=== PATIENT | female | born 1990 | race Caucasian/White ===

== ENCOUNTER 2022-01-05 16:43 | Outpatient (CLI) | payer OTHER, SELFPAY | END 2022-01-05 16:44 | disposition home or self-care (01) | LOC: ANHLAB 01-12 11:14 | PROVIDERS: PCP Internal Medicine; Visit Provider Nurse Practitioner | DX: O26.859 Spotting complicating pregnancy, unspecified trimester (principal); Z3A.00 Weeks of gestation of pregnancy not specified | CPT/HCPCS: 36415; 84702; 85461 ==

== ENCOUNTER 2022-01-12 11:15 | Outpatient (CLI) | payer OTHER, SELFPAY | END 2022-01-12 11:16 | disposition home or self-care (01) | PROVIDERS: PCP Internal Medicine; Visit Provider Nurse Practitioner | DX: O26.851 Spotting complicating pregnancy, first trimester (principal); Z3A.00 Weeks of gestation of pregnancy not specified | CPT/HCPCS: 36415; 84702 ==

== ENCOUNTER 2022-01-21 10:21 | Outpatient (CLI) | payer OTHER, SELFPAY ==
--- NOTE | ~2022-01-21 | US_ITS ---
EXAMINATION: US OB <= 14 weeks fetus DATE: 01/21/2022 12:08 INDICATION: Spotting during first trimester TECHNIQUE: Real-time pelvic ultrasound utilizing both a transvaginal and transabdominal probe was pe rformed. The interpreting radiologist was not present for the study. COMPARISON: None. FINDINGS: The uterus measures 8.5 x 6.2 x 5.9 cm. There is an intrauterine gestational sac. A yolk sac and fet al pole are identified. The crown rump length measures 10 mm, which correlates with an estimated gest ational age of 7 weeks and 1 days. heart motion is identified measuring 145 beats per minute (b pm) by M-mode Doppler. 1.9 x 0.8 x 0.4 similar hypoechoic likely subchorionic hematoma along side the gestational sac. The right ovary measures 3.2 x 2.1 x 2.2 cm. The left ovary measures 3.4 x 2.6 x 2.2 cm. There are fe w centimeters there is peripheral anechoic follicles at both ovaries. Vascular flow with arterial and venous waveforms identified in both ovaries on color Doppler. There is no free fluid in the pelvis. IMPRESSION: 1. Single living fetus with heart rate of 145 bpm. 2. Gestational age by ultrasound of 7 weeks 1 day(s) +/- 3 day(s) with ultrasound estimated date of delivery (JONNA) of 09/08/2022. Reviewed, dictated and finalized at location A. IMPRESSION: 1. Single living fetus with heart rate of 145 bpm. 2. Gestational age by ultrasound of 7 weeks 1 day(s) +/- 3 day(s) with ultraso und estimated date of delivery (JONNA) of 09/08/2022.
== END 2022-01-21 10:22 | disposition home or self-care (01) ==
PROVIDERS: PCP Internal Medicine; Visit Provider Nurse Practitioner
DX: O26.851 Spotting complicating pregnancy, first trimester (principal); Z3A.01 Less than 8 weeks gestation of pregnancy
CPT/HCPCS: 76801

== ENCOUNTER 2022-02-02 15:49 | Outpatient (CLI) | payer OTHER, SELFPAY ==
[2022-02-02 16:41] LABS: Basophils Percent Auto 0.3 % (0.2-1.2); Eosinophils Absolute Auto 0.1 K/mm3 (0-0.3); Eosinophils Percent Auto 0.7 % (0-4.4); Hematocrit 40.1 % (37.0-47.0); Hemoglobin 13.1 g/dL (12.0-15.0); Immature Granulocyte Absolute 0.04 K/mm3 (0.00-0.031); Immature Granulocyte Percent A 0.3 % (0-0.5); Lymphocytes Absolute Auto 1.93 K/mm3 (0.9-3.2); Lymphocytes Percent Auto 16.4 % (18.3-44.2); Mean Corpuscular HGB Conc 32.7 g/dl (32-36); Mean Corpuscular Hemoglobin 29.2 pg (26-34); Mean Corpuscular Volume 89.5 fl (80-100); Mean Platelet Volume 9.3 fl (7.4-10.4); Monocytes Absolute Auto 0.4 K/mm3 (0.1-0.6); Monocytes Percent Auto 3.2 % (2.6-8.5); Neutrophils Absolute Auto 9.3 K/mm3 (1.3-6.7); Neutrophils Percent Auto 79.1 % (45.5-73.1); Platelet Count Result 283 k/mm3 (150-375); Red Blood Count 4.48 M/mm3 (4.2-5.4); Red Cell Distribution Width 11.9 % (11.5-14.5); White Blood Count 11.8 K/mm3 (4.5-10.0)
[2022-02-02 17:30] LABS: HIV 1/2 Ab P24 Ag Result Negative (Negative)
[2022-02-02 18:01] LABS: Vitamin D 25 Hydroxy 46.3 ng/mL
[2022-02-02 18:30] LABS: Hepatitis B Surface Antigen Negative (Negative); Rubella IgG Antibody 62.1 IU/ML
[2022-02-02 18:32] LABS: Hepatitis C Virus Antibody Negative (Negative)
[2022-02-04 14:54] LABS: Rapid Plasma Reagin Non-Reactive (NonReactive)
== END 2022-02-02 15:50 | disposition home or self-care (01) ==
LOC: ANHLAB 15:51
PROVIDERS: PCP Internal Medicine; Visit Provider Nurse Practitioner
DX: Z36.9 Encounter for antenatal screening, unspecified (principal)
CPT/HCPCS: 36415; 82306; 83036; 85025; 86592; 86703; 86762; 86803; 86850; 86900; 86901; 87340; G0432

== ENCOUNTER → 2022-04-14 13:34 | Outpatient (CLI) | payer OTHER, SELFPAY ==
--- NOTE | ~2022-04-14 | US_ITS ---
EXAMINATION: US OB /maternal detail DATE: 04/14/2022 14:38 INDICATION: survey TECHNIQUE: Multiple obstetric sonographic images performed. FINDINGS: There is a single living fetus in transverse presentation. The placenta is anterior without placenta previa. Placental margin is 5 cm to the cervix. Amniotic fluid volume is normal. ROSE measures cm. cardiac activity and movement is noted with a heart rate of beats per minute. The following anatomy was identified as normal: 4 chamber heart 3 vessel cord cord insertion kidneys urinary bladder stomach spine diaphragm ventricles cisterna magna cerebellum The following biometric data were obtained: BPD: 43mm corresponds to gestational age 19 weeks 0 days. Head circumference: 165 mm corresponds to gestational age 19 weeks 1 days. Abdominal circumference: 151 mm corresponds to gestational age 20 weeks 2 days. Femur length: 30 mm corresponds to gestational age 19 weeks 2 days. Head circumference to abdominal circumference ratio: 1.09 (normal range for expected gestational age is 1.08-1.26). Estimated weight: 311 grams +/- 47 grams using Hadlock method. IMPRESSION: 1: Single living intrauterine with an estimated gestational age of 19weeks 0days by initial ultrasound measurements, with an EDC of 09/08/2022 in transverse presentation. 2. Normal survey. Reviewed, dictated and finalized at location A. IMPRESSION: 1: Single living intrauterine with an estimated gestational age of 19 weeks 0days by initial ultrasound measurements, with an EDC of 09/08/2022 in tr ansverse presentation. 2. Normal survey.
== END ==
PROVIDERS: PCP Internal Medicine; Visit Provider Advanced Practice Midwife
DX: Z34.92 Encounter for supervision of normal pregnancy, unspecified, second trimester (principal); Z3A.19 19 weeks gestation of pregnancy
CPT/HCPCS: 76805

== ENCOUNTER 2022-08-17 06:58 | Inpatient (IN) | payer OTHER, SELFPAY ==
[2022-08-17] VITALS (92 sets, daily range): BP systolic 63–165; BP diastolic 36–119; PULSE 25–162; TEMP 36.6–37.1; O2SAT 79–100; BMI 29.9
--- NOTE | 2022-08-17 06:58 | LDADM ---
This patient, Jeannine Myles, was admitted to Labor/Delivery/Recovery 108 on 08/17/22 at 06:58. Plans for labor, pain management and were discussed with patient. Patient/family oriented to hospital policies and general routines including ID bracelet, bed and alarms, visiting hours, pain management, procedures, bathroom and other care routines, personal items, smoking policy, room service/diet and guest tray routines, infant security routines, and visiting hours. Patient/Family are encouraged to report perceived risks to care and to ask questions if they do not understand what they are told or what they should do. See OBIX for further documentation.
--- NOTE | 2022-08-17 08:08 | WPDOBADMIT ---
Obstetrics - Admit Note Admission Note: record reviewed. No pertinent additions to the history and/or any subsequent changes in the physical findings that are not consistent with the expected course of the were found. Additions to the history and/or subsequent changes in the physical findings follow. ROM. Pt presents with SROM of clear fluid at 0545 this mornig. GBS+
[2022-08-17] MEDS: LACTATED RINGERS 1,000 ML 125 ML IV CONT (08:29)
[2022-08-17] MEDS: OXYTOCIN 30 UNITS/NS 500 ML 30 UNITS/500 ML BAG 6 UNITS IV CONT (08:30)
[2022-08-17] MEDS: BETAMETHASONE SOD PHOS/ACETATE 30 MG/5 ML VIAL 12 MG IM (08:30)
[2022-08-17] MEDS: AMPICILLIN 2 GM/NS 100 ML 2 GM/100 ML BAG IVPB (08:30)
[2022-08-17 08:32] LABS: Basophils Percent Auto 0.3 % (0.2-1.2); Eosinophils Absolute Auto 0.2 K/mm3 (0-0.3); Eosinophils Percent Auto 1.2 % (0-4.4); Hematocrit 35.5 % (37.0-47.0); Hemoglobin 11.5 g/dL (12.0-15.0); Immature Granulocyte Absolute 0.07 K/mm3 (0.00-0.031); Immature Granulocyte Percent A 0.6 % (0-0.5); Lymphocytes Absolute Auto 1.75 K/mm3 (0.9-3.2); Lymphocytes Percent Auto 14.6 % (18.3-44.2); Mean Corpuscular HGB Conc 32.4 g/dl (32-36); Mean Corpuscular Volume 89.4 fl (80-100); Monocytes Absolute Auto 0.6 K/mm3 (0.1-0.6); Monocytes Percent Auto 4.7 % (2.6-8.5); Neutrophils Absolute Auto 9.4 K/mm3 (1.3-6.7); Neutrophils Percent Auto 78.6 % (45.5-73.1); Platelet Count Result 236 k/mm3 (150-375); Red Blood Count 3.97 M/mm3 (4.2-5.4); Red Cell Distribution Width 14.7 % (11.5-14.5)
--- NOTE | 2022-08-17 10:10 | WPDANESEPP ---
Anes - Eval Pre Procedure Procedure: labor pain management Date/Time: 08/17/22 10:10 Surgeon: Jennifer Preop Diagnosis: pain during labor Pre Op Diagnosis: ROM/LABOR Patient Data Age: 31 Gender: F Height: 1.75 m Weight: 92 kg Last Vital Signs Temp 98.8 F 08/17/22 09:00 Pulse 83 08/17/22 10:01 BP 156/75 H 08/17/22 10:01 O2 Del Method Room Air 08/17/22 08:38 Allergies Allergy/AdvReac Type Severity Reaction Status Date / Time Sulfa (Sulfonamide Allergy Mild Rash Verified 08/16/22 15:38 Antibiotics) Home Medications Medication Instructions Recorded Confirmed Type aspirin 81 mg tablet,delayed 81 mg PO DAILY 08/16/22 08/16/22 History release (Adult Low Dose Aspirin) ferrous sulfate 325 mg (65 mg 325 mg PO DAILY 08/16/22 08/16/22 History iron) tablet prenat.vits,hawk,epu-ewac-cyyvz 1 tablet PO DAILY 08/16/22 08/16/22 History sertraline 100 mg tablet 100 mg PO DAILY 08/16/22 08/16/22 History Laboratory Tests 08/17/22 08/17/22 08/17/22 08:04 08:04 08:04 WBC 12.0 K/mm3 H K/mm3 (4.5-10.0) RBC 3.97 M/mm3 L M/mm3 (4.2-5.4) Hgb 11.5 g/dL L g/dL (12.0-15.0) Hct 35.5 % L % (37.0-47.0) MCV 89.4 fl fl (80-100) MCH 29.0 pg pg (26-34) MCHC 32.4 g/dl g/dl (32-36) RDW 14.7 % H % (11.5-14.5) Plt Count 236 k/mm3 k/mm3 (150-375) MPV 10.0 fl fl (7.4-10.4) Immature Gran % (Auto) 0.6 % H % (0-0.5) Neut % (Auto) 78.6 % H % (45.5-73.1) Lymph % (Auto) 14.6 % L % (18.3-44.2) Angelina % (Auto) 4.7 % % (2.6-8.5) Eos % (Auto) 1.2 % % (0-4.4) Baso % (Auto) 0.3 % % (0.2-1.2) Lymph # (Auto) 1.75 K/mm3 K/mm3 (0.9-3.2) Angelina # (Auto) 0.6 K/mm3 K/mm3 (0.1-0.6) Eos # (Auto) 0.2 K/mm3 K/mm3 (0-0.3) Baso # (Auto) 0.0 K/mm3 K/mm3 (0.0-0.1) Abs Immat Gran (auto) 0.07 K/mm3 H K/mm3 (0.00-0.031) Absolute Neuts (auto) 9.4 K/mm3 H K/mm3 (1.3-6.7) Absolute Nucleated RBC 0.0 K/mm3 K/mm3 (0.0-0.012) Nucleated RBC % 0.0 % % (0.0-0.2) RPR Pending HIV 1&2 Ab/P24 Ag 4thGn Blood Type A Positive Antibody Screen Negative 08/17/22 09:52 WBC RBC Hgb Hct MCV MCH MCHC RDW Plt Count MPV Immature Gran % (Auto) Neut % (Auto) Lymph % (Auto) Angelina % (Auto) Eos % (Auto) Baso % (Auto) Lymph # (Auto) Angelina # (Auto) Eos # (Auto) Baso # (Auto) Abs Immat Gran (auto) Absolute Neuts (auto) Absolute Nucleated RBC Nucleated RBC % RPR HIV 1&2 Ab/P24 Ag 4thGn Pending Blood Type Antibody Screen Patient hx anesthesia problems: none Family hx anesthesia problems: none Results Review: All pre-operative results and documents have been reviewed as part of the pre-operative evaluation. [facility] Past Medical History Medical History Anxiety Depression Surgical History Surgical History S/P tonsillectomy Family History Family History Mother Breast cancer Father Hypertension Social History Social History Smoking status: Never smoker Second hand tobacco smoke exposure: No Substance use: never Lack of Transportation: No Lack of Food: Never True Current Housing: I Have Housing Concerned About Future Housing: No Difficulty Paying Gas/Electric Bills: No Difficulty Paying for Meds: No Currently Unemployed: No Education: Bachelor's Degree Difficulty w/ Childcare or Family Care: No S
[2022-08-17 10:20] LABS: Rapid Plasma Reagin Non-Reactive (NonReactive)
[2022-08-17 10:54] LABS: HIV 1/2 Ab P24 Ag Result Negative (Negative)
[2022-08-17] MEDS: AMPICILLIN 1 GM/NS 50 ML 1 GM/50 ML BAG IVPB ×2 (12:49→17:00)
--- NOTE | 2022-08-17 20:26 | PM.OBPRVD ---
OB - Delivery Note Procedure Delivery date: 08/17/22 Procedure: Events: Positive Group B Strep (GBS) and Other (premature, prelabor rupture of membranes) Induction method: Per Pitocin Protocol Delivery augmentation: Pitocin Delivery monitor: External FHT and External Uterine Route of delivery: Episiotomy description: None Laceration Description: Vaginal, Labial (bilateral. ) and Superficial Delivery repair: vicryl Specimen: Yes Quantitative Blood Loss (ml): 700 Anesthesia type: Epidural Disposition: Floor Narrative: CNM called to bedside for patient urge to push. Patient pushed with contraction and made very rapid progress to . She pushed with the next contraction there was spontaneous delivery of the head followed by good restitution and delivery of the remainder of the . The infant was then placed on the maternal abdomen. After 1 minute of life the cord was doubly clamped and cut. Baby Date of : 08/17/22 Time of : 18:18 Weeks of gestation at delivery: 36 Infant gender: Female Weight (pounds): 5 Weight (ounces): 12 presentation: vertex position: Left Occiput Anterior Placenta delivery description: Spontaneous Cord Vessel Description: 3 Vessels score one minute: 9 score five minutes: 9
--- NOTE | 2022-08-17 20:31 | PM.OBDSVD ---
DS: Admitting Diagnosis Discharge Date 08/19/22 Admitting Diagnosis rutpure of membranes. GBS+ Anxiety/Depression DS: Discharge Diagnosis Discharge Diagnosis (1) Depression: Code(s): F32.A - Depression, unspecified Status: Acute (2) Anxiety: Code(s): F41.9 - Anxiety disorder, unspecified Status: Acute (3) Mother currently breast-feeding: Code(s): Z39.1 - Encounter for care and examination of lactating mother Status: Acute (4) (normal spontaneous vaginal delivery): Code(s): O80 - Encounter for full-term uncomplicated delivery Status: Acute OB - DS: Summary OB Procedures : Ultrasound OB Procedures Intrapartum: Spontaneous Vag Delivery OB Procedures: : None Time Spent with Patient Time attestation: Total time spent providing and/or coordinating discharge services: DS: Data Data Completed and Pending Pending studies at discharge: Pending at discharge 08/17/22 19:01 Surgical [PTH] Routine Labs on day of discharge: Labs from last 24 hours 08/17/22 08/17/22 08/17/22 09:52 08:04 08:04 WBC RBC Hgb Hct MCV MCH MCHC RDW Plt Count MPV Immature Gran % (Auto) Neut % (Auto) Lymph % (Auto) Cochran % (Auto) Eos % (Auto) Baso % (Auto) Lymph # (Auto) Cochran # (Auto) Eos # (Auto) Baso # (Auto) Abs Immat Gran (auto) Absolute Neuts (auto) Absolute Nucleated RBC Nucleated RBC % RPR Non-reactive HIV 1&2 Ab/P24 Ag 4thGn Negative Blood Type A Positive Antibody Screen Negative 08/17/22 08:04 WBC 12.0 H RBC 3.97 L Hgb 11.5 L Hct 35.5 L MCV 89.4 MCH 29.0 MCHC 32.4 RDW 14.7 H Plt Count 236 MPV 10.0 Immature Gran % (Auto) 0.6 H Neut % (Auto) 78.6 H Lymph % (Auto) 14.6 L Cochran % (Auto) 4.7 Eos % (Auto) 1.2 Baso % (Auto) 0.3 Lymph # (Auto) 1.75 Cochran # (Auto) 0.6 Eos # (Auto) 0.2 Baso # (Auto) 0.0 Abs Immat Gran (auto) 0.07 H Absolute Neuts (auto) 9.4 H Absolute Nucleated RBC 0.0 Nucleated RBC % 0.0 RPR HIV 1&2 Ab/P24 Ag 4thGn Blood Type Antibody Screen Discharge Plan Discharge Attending physician on discharge: Eli Rodriguez Discharging Clinician: Eli Rodriguez Anticipated Discharge Date/Time: 08/19/22 20:32 Patient Disposition: Home, Self-Care Activity: may shower and no straining Diet: as tolerated and regular Discharge Instructions: Education: Mom and Baby Guide Given to: Mother Follow-Up: Call your delivering provider's office for an appointment to be seen in: 6 Weeks Mom and baby should come to the [facility] for the follow-up appointment. Appointment Date/Time: August 21, 2022 at 10:00 am What to expect at your follow-up visit: Blood Pressure Check Physical Assessment Call [phone] if you are unable to keep your appointment time. BREAST CARE: * Wear a snug supportive bra. * For engorgement discomfort: Breast Feeding: * Apply warm moist washcloths * Express milk as needed to relieve engorgement * Wear loose clothing Bottle Feeding: * May apply ice packs * For sore nipples: * Identify correct latch-on * Apply warm moist washcloths before and after nursing * Air dry nipples after nursing * May apply Lansinoh cream to nipples EPISIOTOMY/PERINEAL CARE: * Until bleeding stops, use your shruti bottle after urinating * Change your pad frequently throughout the day * You may take sitz baths several times a day (fill your bathtub with warm water and soak for 20 minutes.) Do NOT bathe in the water * No tub baths until seen by your physician - You may shower ACTIVITY: * Rest as much as possible. * Do not exercise or lift anything heavier than your baby (such as laundry or other children.) * Avoid stairs or driving as much as possible. * Do not put anything int
[2022-08-17] MEDS: miSOPROStol 200 MCG TABLET 1000 MCG (23:32)
--- NOTE | 2022-08-17 23:45 | PC.NURSE ---
2300 patient's recovery was completed and patient was ambulated to the bathroom with assist. Patient was able to void 100. When patient was about to stand up she stated she felt faint and her color turned pale. RN at patients side called for assistants and two other RNs responded to patients side. RNs were able to assist patient to wheel chair that was then rolled to the bedside to obtain a blood pressure. Patient began to loose consciousness, RNs at beside became stimulating the patient. Patient began answering questions and was getting more pink. Patient was transferred to the bed with assist and turned in her left side, Oxygen was applied and blood pressure was stabilizing. RN checked patient's bleeding by rubbing on patient's fundus. Clot was suspected in the vagina.. RN manually removed clots. 2315 Dr. Rodriguez was called for an update on the patient. Orders received for 1000 mcg of Cytotec rectally. 2332 Cytotec was given 2335 Patient's bleeding has slowed substantially and patient has stabilized.
[2022-08-17] MEDS: HYDROcodone/acetaminophen (*CRX) 5-325 MG TABLET 1 TAB PO (23:58)
[2022-08-18] VITALS (28 sets, daily range): BP systolic 128–142; BP diastolic 68–95; PULSE 76–168; RESP 16–20; TEMP 36.6–37.4; O2SAT 94–100
[2022-08-18] MEDS: IBUPROFEN 600 MG TABLET PO ×4 (01:21→21:25)
[2022-08-18] MEDS: OXYTOCIN 30 UNITS/NS 500 ML 30 UNITS/500 ML BAG 125 UNITS IV CONT (01:22)
[2022-08-18] MEDS: METHYLERGONOVINE MALEATE 0.2 MG TABLET PO ×3 (03:33→16:54)
--- NOTE | 2022-08-18 06:54 | PM.OBPNVD ---
OB - PN: Subj Subjective Date/time seen: 08/18/22 06:54 Interval history: RN reports Jeannine had a syncopal episode while on the toilet last night. Has been ambulating with assistance. Staff member reports removing aprox 150ml clots after that episode. Vaginal bleeding has been reported as WNL since that time. Ambulating to BR with assistance of staff member. Awaiting am CBC results. Patient comments: pain well controlled baby status: doing well [place] feeding status: exclusively breast feeding OB - PN: Obj Data Labs CBC & Chem 7: 08/17/22 08:04 Labs: Laboratory Results - last 24 hr 08/17/22 08/17/22 08/17/22 08:04 08:04 08:04 WBC 12.0 H RBC 3.97 L Hgb 11.5 L Hct 35.5 L MCV 89.4 MCH 29.0 MCHC 32.4 RDW 14.7 H Plt Count 236 MPV 10.0 Immature Gran % (Auto) 0.6 H Neut % (Auto) 78.6 H Lymph % (Auto) 14.6 L Grady % (Auto) 4.7 Eos % (Auto) 1.2 Baso % (Auto) 0.3 Lymph # (Auto) 1.75 Grady # (Auto) 0.6 Eos # (Auto) 0.2 Baso # (Auto) 0.0 Abs Immat Gran (auto) 0.07 H Absolute Neuts (auto) 9.4 H Absolute Nucleated RBC 0.0 Nucleated RBC % 0.0 RPR Non-reactive HIV 1&2 Ab/P24 Ag 4thGn Blood Type A Positive Antibody Screen Negative 08/17/22 09:52 WBC RBC Hgb Hct MCV MCH MCHC RDW Plt Count MPV Immature Gran % (Auto) Neut % (Auto) Lymph % (Auto) Grady % (Auto) Eos % (Auto) Baso % (Auto) Lymph # (Auto) Grady # (Auto) Eos # (Auto) Baso # (Auto) Abs Immat Gran (auto) Absolute Neuts (auto) Absolute Nucleated RBC Nucleated RBC % RPR HIV 1&2 Ab/P24 Ag 4thGn Negative Blood Type Antibody Screen OB - PN A/P Time Spent With Patient Time: Total time spent is greater than 50% in coordination of care (as documented) at patient's floor/unit and/or counseling patient: Review of Systems Review of Systems: All systems reviewed & are unremarkable except as noted in HPI and below Exam Narrative: Alert and oriented. Mood is pleasant and cooperative. Urinating without difficulty. Perineum with moderatel edema. Vaginal bleeding small. No active bleeding with fundal check. Const: General: healthy appearing and no acute distress Orientation/consciousness: patient oriented x3 Limitations: no limitations Resp: Effort & Inspection: normal respiratory effort Auscultation: clear to auscultation bilaterally Cardio: Rate: regular rate GI: Inspection: normal to inspection Neuro: General: patient oriented x3 Extrem: General: normal to inspection Psych: Appearance: grossly normal Mental Status: mental status grossly normal Affect: normal affect Thought process: Normal thought process present
[2022-08-18] MEDS: SERTRALINE HCL 50 MG TABLET 100 MG PO (08:57)
[2022-08-18] MEDS: DOCUSATE SODIUM 100 MG CAPSULE PO ×2 (08:57→16:51)
[2022-08-18] MEDS: MULTIVIT/MIN/PREN/FOL AC/IRON TABLET 1 TAB PO (08:58)
[2022-08-18 09:35] LABS: Hematocrit 28.7 % (37.0-47.0); Hemoglobin 9.4 g/dL (12.0-15.0)
--- NOTE | 2022-08-18 14:39 | OBPPTRN ---
Patient transferred to post room #285 via W/C. Support person present. Oriented to unit, room, information board, rooming in, admission packet and security measures. Patient verbalizes understanding.
[2022-08-18] MEDS: HYDROcodone/acetaminophen (*CRX) 5-325 MG TABLET 1 TAB PO ×2 (14:53→21:25)
[2022-08-18] MEDS: POLYSACCHARIDE IRON COMPLEX 150 MG CAPSULE PO (16:51)
--- NOTE | 2022-08-18 17:16 | PC.NURSE ---
[id number] Introductions were made, then consulted with patient to assess needs related to . Mother led the conversation with her?plans to feed?her (EGA 36) with , bottlefeeding, pumping her breast to feed and the?experience so far. Breast pump provided due to ineffective . Instructions given on cleaning, care, usage, that there should be no pain, pumping schedule for milk production, collection, and storage of human milk. Parents are encouraged to record pumping schedule on the feeding sheet. Patient was assessed for correct placement, flange size, to pump for comfort and nipple stretching/stimulation for adequate milk production every 3 hours (8 times in 24 hours) 1-2 times at night. Resources provided for inpatient and outpatient services using mom/baby guide. Mother voiced understanding of information and will call if there is a request for assistance. Reported to primary RN.
[2022-08-19] MEDS: METHYLERGONOVINE MALEATE 0.2 MG TABLET PO (00:20)
[2022-08-19] MEDS: HYDROcodone/acetaminophen (*CRX) 5-325 MG TABLET 1 TAB PO ×3 (00:23→14:22)
--- NOTE | 2022-08-19 07:40 | PM.OBPNVD ---
OB - PN: Subj Subjective Date/time seen: 08/19/22 07:40 Interval history: Patient comments: no complaints and pain well controlled baby status: doing well OB - PN: Obj Data Labs CBC & Chem 7: 08/18/22 09:04 Labs: Laboratory Results - last 24 hr 08/18/22 09:04 Hgb 9.4 L Hct 28.7 L OB - PN A/P Plan day: 2 Plan: routine care, discharge home, follow up 6 weeks and other (plans condoms) Time Spent With Patient Time: Total time spent is greater than 50% in coordination of care (as documented) at patient's floor/unit and/or counseling patient: Exam : Bimanual exam- vagina & uterus: other (Uterus firm, nt @U)
[2022-08-19 08:20] VITALS: BP 133/78; PULSE 75; RESP 16; TEMP 36.7; O2SAT 100
[2022-08-19] MEDS: MULTIVIT/MIN/PREN/FOL AC/IRON TABLET 1 TAB PO (08:25)
[2022-08-19] MEDS: DOCUSATE SODIUM 100 MG CAPSULE PO (08:25)
[2022-08-19] MEDS: POLYSACCHARIDE IRON COMPLEX 150 MG CAPSULE PO (08:25)
[2022-08-19] MEDS: SERTRALINE HCL 50 MG TABLET 100 MG PO (08:25)
[2022-08-19] MEDS: IBUPROFEN 600 MG TABLET PO ×2 (08:26→14:22)
--- NOTE | 2022-08-19 11:00 | PC.NURSE ---
Patient viewed the discharge video Mother & Baby Care, The First Two Weeks . Patient was given the opportunity and encouraged to ask questions. Patient verbalized understanding of information shared and has been given the mother/baby guide for home reference.
--- NOTE | 2022-08-19 13:41 | PC.NURSE ---
[id number] [phone] [id number] Reported to RN that mother is pumping and feeding her . Consulted with patient to assess /milk production needs. Mother states she has been attempting to breastfeed and her right nipple is bruised. There is a dark red/purple colored line down the middle of her right nipple. Reviewed the education regarding feeding a late . Mother is also pumping and father of baby is supplementing. Parents are confident with continuing with the plan of attempting to breastfeed/pump/supplement to feed . Reminded parents to use good handwashing technique to prevent infection. Mother is feeding appropriately for growth of infant and understands stimulating to eat if needed. Infant has had appropriate feedings in the last 24 hours meets the outcomes for weight, output and jaundice at this time. Mother states she is confident to continue attempting to breastfeed, pumping her breast for milk production and supplementing her infant at home or when to call for assistance and denies any additional assistance or education at this time. Reinforced understanding of milk production, transition of milk, signs of adequate intake, prevention/relief of engorgement, responsive after visualizing feeding cues, the different methods of stimulating infant to breastfeed 2-3 hours after the start of the last feeding, community resources, medication information reviewed per [employer] and when to call a provider using the resource of the mom and baby guide/[facility] website. Assistance was offered for the next feeding and parents were encouraged to call if did not wake to breastfeed or there's pain with the latch. Mother voiced understanding of the education shared. Reported to the primary RN.
[2022-08-21 09:46] VITALS: BP 147/83; PULSE 86; RESP 20; TEMP 37.2; O2SAT 98
== END 2022-08-19 15:00 | disposition home or self-care (01) | DRG 807 ==
LOC: ANHLDR 20:33 → ANHOBPP 08-18 03:04 → ANHOB2 08-18 14:58
PROVIDERS: Advanced Practice Midwife; Admitting Provider Obstetrics & Gynecology Gynecology; PCP Internal Medicine; Visit Provider Obstetrics & Gynecology Gynecology
DX: O99.824 Streptococcus B carrier state complicating childbirth (principal); Z37.0 Single live birth; O42.913 Preterm premature rupture of membranes, unspecified as to length of time between rupture and onset of labor, third trimester; O70.0 First degree perineal laceration during delivery; Z3A.36 36 weeks gestation of pregnancy; O99.344 Other mental disorders complicating childbirth; F32.A Depression, unspecified; F41.9 Anxiety disorder, unspecified
CPT/HCPCS: 36415; 84112; 85014; 85018; 85025; 86592; 86703; 86850; 86900; 86901; 88307; A9270; G0432; J0290; J0702; J2590; J2795; J7120

== ENCOUNTER 2024-12-31 07:08 | Outpatient (CLI) | payer OTHER, SELFPAY ==
--- NOTE | ~2024-12-31 | US_ITS ---
Pelvic ultrasound. Clinical History: First trimester , establish dates and viability Technique: Realtime transabdominal and transvaginal scanning of the pelvis was performed. Color flow Doppler and Doppler spectral analysis were performed. Findings: The uterus is anteverted. Intrauterine gestational sac is present. [place]-rump length of 4.7 cm corresponds to an estimated gestational age of 11 weeks 3 days. The placenta posteriorly located. heart rate is 171 bpm.. The right ovary measures 1.5 x 2.7 x 1.4 cm. No significant right ovarian or adnexal mass is seen. The left ovary measures 2.7 x 1.7 x 3.1 cm. No significant left ovarian or adnexal mass is seen. There is no evidence of free fluid in the cul de sac. Impression: Live intrauterine gestation, with estimated gestational age of 11 weeks 3 days. heart rate is 1 71 bpm. Reviewed, dictated and finalized at [facility]. Impression: Live intrauterine gestation, with estimated gestational age of 11 weeks 3 days. heart rate is 171 bpm.
--- OUTSIDE RECORDS SUMMARY | 2024-12-31 07:12 | XMS_ITS | Encounter Summary ---
Author Organization [facility] - [facility] Address [facility] [place] [address] Care Team Providers Care Reference Services Head Name Role Phone Natalia Price MD Primary Care Provider [phone] Encounter Details Date Type Department Care Team (Latest Contact Info) Description 08/18/2022 Makstrhart Message Enc [facility] [place] [address] [place] [address] [address] [place] [address] [place] [address] [place] [address] [address] [place] [address] Congratulations! Social History Tobacco Use Types Packs/Day Years Used Date Smoking Tobacco: Never Smokeless Tobacco: Never Comments:counseled by Dr Emilia villagomez Alcohol Use Standard Drinks/Week Comments Not Currently 0 (1 standard drink = 0.6 oz pur e alcohol) PHQ-2 Answer Date Recorded PHQ-2 Score - If the patient scores above 3, please move on to questions 3-9 0 08/04/2022 Comments Yes Sex and Gender Information Value Date Recorded Sex Assigned at Female 10/23/2024 12:54 PM GUYLINE OPERATOR Legal Sex Female 4:27 PM CDT Gender Identity Female 12/18/2024 1:27 PM CDT Sexual Orientation Straight 12/18/2024 1: 27 PM CDT COVID-19 Exposure Response Date Recorded In the last 10 days, have yo u been in contact with someone who was confirmed or suspected to have Coronavirus/COVID-19? No / Unsure 08/04/2022 10:42 AM CDT documented as of this encounter Plan of Treatment Upcoming Encounters Date Type Department Care Team (Late st Contact Info) Description 09/18/2025 8:00 AM GUYLINE OPERATOR Office Visit [facility] [place] [address] [address] [place] [address] Natalia Price MD [address] [place] [phone] documented as of this encounter Visit Diagnoses Not on filedocumented in this encounter Additional Health Concerns Infection Onset Date Last Indicated Resolved Time COVID-19 Rule Out 01/11/2024 01/11/2024 01/11/2024 2:45 PM CDT Assessment Noted Time PHQ-9 Depression Total Score: 4 10/21/19 22 11:21 AM GUYLINE OPERATOR documented as of this encounter Care Teams Reference Services Head Relationship Specialty Start Date End Date Natalia Price MD [address] [place] [id number] PCP - General INTERNAL MEDICINE 07/24/21 documented as of this encounter
--- OUTSIDE RECORDS SUMMARY | 2024-12-31 07:12 | XMS_ITS | Clinical Summary ---
Author Organization [facility] Address [address] [place] [address] Care Team Providers Care Networking Administrator Name Role Phone Natalia Price MD Primary Care Provider [phone] Allergies Active Allergy Reactions Criticality Noted Date Comments Sulfa Antibiotics Rash Low 07/24/2021 Medications fluticasone propionate (FLONASE) 50 MCG/ACT nasal sprayIndications:A llergic rhinitis, unspecified seasonality, unspecified trigger 2 sprays by Nasal route daily. 16 g 5 2 Active vitamin, low iron, 27-0.8 mg tablet Take 1 tablet by mouth daily. Active sertraline (ZOLOFT) 100 MG tabletIndications: KERVIN (generalized anxiety disorder),Mild episode of recurrent major depressive disorder Take 1 tablet (100 mg total) by mouth daily. 90 tablet 2 5 Active sertraline (ZOLOFT) 100 MG tabletIndications: KERVIN (generalized anxiety disorder),Mild episode of recurrent major depressive disorder Take 1 tablet (100 mg total) by mouth daily. 90 tablet 1 4 025 Discontinu ed(Reorder ) atorvastatin (LIPITOR) 10 MG tabletIndications: Mixed hyperlipidemia Take 1 tablet (10 mg total) by mouth nightly at bedtime. 90 tablet 1 4 025 Discontinu ed(Other- Please enter comment in Notes field) Active Problems Problem Noted Date Diagnosed Date KERVIN (generalized anxiety disorder) 07/24/2021 Mild episode of recurrent major depressive disor carlene 07/24/2021 Overview (01/19/2022): Controlled on Setraline; PHQ-9 and KERVIN-7 scores reviewed and appear controlled. Patient counseled for about 3 minutes on strategies including stress management, sleep hygiene, balanced diet, regular physical activity including aerobic exercise, weight reduction, activity pacing and maintenance of overall health lifestyle. Comorbidities including depression, anxiety currently being managed. Active nonpharmacological therapies including supervised and graded exercise program as well as cognitive behavioral interventions discussed as well. Allergic rhinitis 07/24/2021 Estimated Date of Delivery Comme nts Yes 07/23/2025 Encounters Date Type Department Care Team Description 12/18/2024 1:20 PM CDT Office Visit [facility] Multispecialty Care - [address] [place] [address] Natalia Price MD Follow Up; Hypertension; Anxiety; Depression 12/18/2024 Travel 10/23/2024 12:56 PM EMBOSSING CLERK - 10/23/2024 11:59 PM EMBOSSING CLERK Hospital Encounter [facility] [place] [address] Natalia Price MD Discharge Disposition: Home or Self Care (Routine Discharge) 10/23/2024 Travel from Last 3 Months Immunizations Name Administration Dates Next Due Dtap (Acel-Immune) 05/08/1998,01/02/1994 Fluzone (IIV3, Trivalent, 0. 5 ML Prefilled Syringe) 09/19/2024 Fluzone 6 Months+ Quad (0.5 mL Prefilled Syringe) 08/05/2023,08/04/2022,07/24/2021 HPV4 (Gardasil) 02/15/2008,10/16/2007,08/15/2007 Hepatitis A (Havrix [address]) 07/14/2009 Influenza (Generic) 09/05/2014,09/01/2012 Influenza Adult (Generic) 09/03/2015 MMR (MMRII) 05/08/1998,01/02/1994 Meningococcal (Menactra) 04/27/2007 PFIZER COVID-19 (ORIGINAL FO RMULATION, PURPLE CAP) mRNA, LNP-S, PF, 30 MCG/0.3 ML DOSE 01/27/2021,12/30/2020 Polio IPV (Ipol) 05/08/1998,01/02/1994 Tdap (Adacel) 08/21/2021 Tdap (Generic) 04/27/2007 Varicella (Varivax) 06/14/1995 Family History Medical History Relation Comments Asthma Brother Asthma Father Hypertension Father Cancer Maternal Grandfather Pancreatic Stroke Maternal Grandfather Cancer Mother Breast cancer hneao rvivor 2016 Cancer Paternal Grandfather Throat Cancer Paternal Grandmother Colon Relation Status Comments Brother Father Alive Maternal Grandfather Mother Alive Paternal Grandfather Paternal Grandmother Social History Tobacco Use Types Packs/Day Years Used Date Smoking Tobacco: Never Smokeless Tobacco: Never Tobacco Cessation:Counseling Given: Yes Comments:counseled by Dr Price Alcohol Use Standard Drinks/Week Comments Yes 3.3 (1 standard drin k = 0.6 oz pure alcohol) Social drinker on weekends when out with friends PHQ-2 Answer Date Recorded Patient Health Questionnaire-2 Score 0 12/18/2024 Estimated Date of Delivery Comme nts Yes 07/23/2025 Sex and Gender Information Value Date Recorded Sex Assigned at Female 10/23/2024 12:54 PM EMBOSSING CLERK Legal Sex Female 4:27 PM CDT Gender Identity Female 12/18/2024 1:27 PM CDT Sexual Orientation Straight 12/18/2024 1: 27 PM CDT Last Filed Vital Signs Vital Sign Reading Time Taken Comments Blood Pressure 138/82 12/18/2024 1:27 PM CDT Pulse 86 12/18/2024 1:27 PM CDT Temperature 36.5 C (97.7 F) 12/18/2024 1:27 PM CDT Respiratory Rate 18 12/18/2024 1:27 PM CDT Oxygen Saturation 99% 12/18/2024 1:27 PM CDT Inhaled Oxygen Concentration - - Weight 82.6 kg (182 lb) 12/18/2024 1:27 PM CDT Height 175.3 cm (5' 9 ) 12/18/2024 1:27 PM CDT Body Mass Index 26.88 12/18/2024 1:27 PM CDT Plan of Treatment Upcoming Encounters Date Type Department Care Team (Late st Contact Info) Description 09/18/2025 8:00 AM EMBOSSING CLERK Office Visit [facility] Multispec[facility]ty Care [address] [place] [address] Natalia Price MD [address] [facility] [address] [place] [address] Health Maintenance Due Date Last Done Comments Hepatitis B Vaccines (1 of 3 - 19+ 3-dose series) 2011 Cervical Cancer Screening Pap with HPV Testing (Age 30 to 64) Every 5 Years 2022 Cervical Cancer Screening Pap Smear (Age 30 to 64) Every 3 Years 01/02/2024 01/01/2021 Cervical Cancer Screening with HPV 01/02/2024 COVID-19 Vaccine (2023- season) 2024 01/27/2021, 12/30/2020 RSV Immunization or 60+ Years (1 - Risk 1-dose series) 06/03/2025 Annual Physical 09/19/2025 09/19/2024, 12/2022, 08/04/2022, Additional history exists DTaP, Tdap and Td Vaccines (5 - Td or Tdap) 08/21/2031 08/21/2021, 04/27/2007, 05/08/1998, Additional history exists Meningococcal Vaccine Aged Out 04/27/2007 No jonny daniel eligible based on patient's age to complete this topic HPV Vaccines Completed 02/15/2008, 10/03, 08/15/2007 Hepatitis C Completed 07/24/2021 PHQ-2 (Physician [place]) Completed 12/18/2024 Meningococcal B Vaccine Aged Out No l onger eligible based on patient's age to complete this topic Pneumococcal Vaccine: Pediatrics (0 to 5 Years) and At-Risk Patients (6 to 64 Years) Aged Out No longer eligible based on patient's age to complete this topic RSV Immunizations Under 20 Months Aged Out No longer eligible based on patient's age to complete this topic Procedures Procedure Name Priority Date/Time Associated Diagnosis Comments US BREAST LT BIRAD LTD Routine 10/23/2024 1:50 PM EMBOSSING CLERK Family history of breast cancer in female Abnormal breast exam MG DIAG W CELY BILAT DIGI Routine 10/23/2024 1:19 PM EMBOSSING CLERK Family history of breast cancer in female Abnormal breast exam HEPATITIS C ANTIBODY Routine 07/24/2021 12:40 PM CDT Annual physical exam Establishing care with new doctor, encounter for OUTSIDE CYTOPATH CERV/VAG INTERPRET (PAP) (SCAN ORDER) 01/01/2021 from Last 3 Months or Most Recently Relevant to Health Maintenance Results * [employer] BREAST LT [employer] (10/23/2024 1:50 PM EMBOSSING CLERK) Anatomical Region Laterality Modality Breast Left Ultrasound 10/23/2024 1:45 PM EMBOSSING CLERK Impressions 10/23/2024 1:53 PM EMBOSSING CLERK ===== IMPRESSION: ===== 1. No mammographic findings suggestive of malignancy. Assessment: ACR BI-RADS CATEGORY 2 - BENIGN FINDING(S) Recommendation: 1: Routine screening mammogram bilateral at age 36 Comments: Given history of pressure relative with breast cancer diagnosed at age 46, beginning screening mammography at age 36 is appropriate. In the setting of palpable abnormality with negative imaging findings, need for further evaluation or palpation guided biopsy to be determined clinically. Ordered By: NATALIA PRICE Interpreted By: Christiano Driscoll, 10/23/2024 1:45 PM Narrative 10/23/2024 1:53 PM EMBOSSING CLERK [facility] [address] [place] [address] Examination: Diagnostic bilateral mammogram and left breast ultrasound [id number] Exam Date/Time: 10/23/2024 1:18 PM Reason For Exam: Family history of breast cancer. Left breast pain, pinpoint lump. Comparison: None Technique: Bilateral diagnostic mammography and left breast ultrasound including sonographic grayscale images projections targeted in the region of interest. Doppler used to assess vasculature. 3D tomographic images were obtained. Tissue density: The breast tissue contains scattered fibroglandular densities. Findings: Mammogram: No suspicious microcalcification, architectural distortion, or mass. Area of interest left inner breast appears normal. As a precaution, this is further evaluated with ultrasound. Leftbreast ultrasound: Area of interest 7:00 position 7 cm in the nipple: Only normal glandular tissue in this area. No suspicious findings. us Natalia Price MD ULTRASOUND Final Result * MG CLARY W CELY MODI (10/23/2024 1:19 PM EMBOSSING CLERK) Anatomical Region Laterality Modality Breast Bilateral Mammography 10/23/2024 1:45 PM EMBOSSING CLERK Impressions 10/23/2024 1:53 PM EMBOSSING CLERK ===== IMPRESSION: ===== 1. No mammographic findings suggestive of malignancy. Assessment: ACR BI-RADS CATEGORY 2 - BENIGN FINDING(S) Recommendation: 1: Routine screening mammogram bilateral at age 36 Comments: Given history of pressure relative with breast cancer diagnosed at age 46, beginning screening mammography at age 36 is appropriate. In the setting of palpable abnormality with negative imaging findings, need for further evaluation or palpation guided biopsy to be determined clinically. Ordered By: NATALIA PRICE Interpreted By: Christiano Driscoll, 10/23/2024 1:45 PM Narrative 10/23/2024 1:53 PM EMBOSSING CLERK [facility] [address] [place] [address] Examination: Diagnostic bilateral mammogram and left breast ultrasound [id number] Exam Date/Time: 10/23/2024 1:18 PM Reason For Exam: Family history of breast cancer. Left breast pain, pinpoint lump. Comparison: None Technique: Bilateral diagnostic mammography and left breast ultrasound including sonographic grayscale images projections targeted in the region of interest. Doppler used to assess vasculature. 3D tomographic images were obtained. Tissue density: The breast tissue contains scattered fibroglandular densities. Findings: Mammogram: No suspicious microcalcification, architectural distortion, or mass. Area of interest left inner breast appears normal. As a precaution, this is further evaluated with ultrasound. Leftbreast ultrasound: Area of interest 7:00 position 7 cm in the nipple: Only normal glandular tissue in this area. No suspicious findings. Natalia Price MD MAMMO Final Result * HEPATITIS C ANTIBODY (07/24/2021 12:40 PM CDT) HEPATITIS C AB NON-REACTI VE NON-REACT MANJULA 07/24/2021 9:36 PM CDT [facility] Comment: ANTIBODIES TO HCV NOT DETECTED. DOES NOT EXCLUDE THE POSSIBILITY OF EXPOSURE TO HCV. 07/24/2021 12:4 0 PM CDT Natalia Price MD LABORATORY Final Result [facility] [address] [place] [address], [place] [phone] [id number] * OUTSIDE CYTOPATH CERV/VAG INTERPRET (PAP) (01/01/2021) 01/01/2021 Narrative 01/01/2021 Ordered by an unspecified provider. us Documents Scanned SCANNING Final Result from Last 3 Months or Most Recently Relevant to Health Maintenance Insurance [facility] Care Teams Networking Administrator Relationship Specialty Start Date End Date Natalia Price MD [address] [address] PCP - General INTERNAL MEDICINE 07/24/21
== END 2024-12-31 07:09 | disposition home or self-care (01) ==
PROVIDERS: PCP Internal Medicine; Visit Provider Nurse Practitioner Family
DX: O36.80X0 Pregnancy with inconclusive fetal viability, not applicable or unspecified (principal)
CPT/HCPCS: 76801; 76817

== ENCOUNTER 2025-07-03 17:01 | Outpatient (CLI) | payer OTHER, SELFPAY ==
[2025-07-03 17:18] VITALS: BP 146/79; PULSE 71
[2025-07-03 17:31] VITALS: BP 133/83; PULSE 77
[2025-07-03 17:47] VITALS: PULSE 76; BMI 31.8
== END 2025-07-03 17:40 | disposition home or self-care (01) ==
LOC: ANHOBOP 17:06 → ANHOBPP 17:07
PROVIDERS: Visit Provider Obstetrics & Gynecology
DX: O13.9 Gestational [pregnancy-induced] hypertension without significant proteinuria, unspecified trimester (principal); Z3A.00 Weeks of gestation of pregnancy not specified
CPT/HCPCS: 59025; 99199

== ENCOUNTER 2025-07-03 17:01 | Outpatient (NON) | payer OTHER, SELFPAY ==
--- OUTSIDE RECORDS SUMMARY | 2025-07-03 17:19 | XMS_ITS | Encounter Summary ---
Author Organization [facility] Address [facility] [place] [address] Care Team Providers Care Apparel Cutter Name Role Phone Natalia Price MD Primary Care Provider [phone] Encounter Details Date Type Department Care Team (Latest Contact Info) Description 08/18/2022 Olive Softwarehart Message Enc [facility] Multispecialty Care - [place] [address] [place] [address] [address] [place] [address] [place] [address] [place] [address] [address] [place] [address] Congratulations! Social History Tobacco Use [...] Sex Assigned at Female 10/23/2024 12:54 PM DIRECTOR HEDIS Legal Sex Female 4:27 PM CDT Gender [...] st Contact Info) Description 09/18/2025 8:00 AM DIRECTOR HEDIS Office Visit [facility] Multispecialty Care - [place] [address] [address] [place] [address] Natalia Price MD [address] [place] [id number] documented as of this encounter Visit Diagnoses Not on filedocumented in this encounter Additional Health Concerns Infection Onset Date Last Indicated Resolved Time COVID-19 Rule Out 01/11/2024 01/11/2024 01/11/2024 2:45 PM CDT Assessment Noted Time PHQ-9 Depression Total Score: 4 10/21/19 22 11:21 AM DIRECTOR HEDIS documented as of this encounter Care Teams Apparel Cutter Relationship Specialty Start Date End Date Natalia Price MD [address] [place] [address] PCP - General INTERNAL MEDICINE 07/24/21 documented as of this encounter
--- OUTSIDE RECORDS SUMMARY | 2025-07-03 17:19 | XMS_ITS | Clinical Summary ---
Author Organization [facility] Address [address] [facility] [place] [address] Care Team Providers Care Peoplesoft Financial Developer Name Role Phone Alfredo Treviño MD Primary Care Provider [phone] Source Comments [facility],non-owned Affiliates and Associated Physician Practices is amultiple site organization consisting of ambulatory clinics and hospital sitesin [place], [place], [place] and [place]. This disclosure is being madepursuant to the Care Everywhere program and may not contain all information available regarding this patient. Last updated 18.[facility] Allergies Active Allergy Reactions Criticality Noted Date Comments Sulfacetamide Rash Medium 03/08/2025 Medications * Be aware that medications may not be up to date on this document. Alwaysverify current medications with the patient. Vit-DSS-Fe Fum-FA ( vitamin with iron) tablet Take 1 (one) tablet by mouth once daily Active sertraline (Zoloft) 50 MG tabletIndicatio ns:Generalized Anxiety Disorder,Major Depressive Disorder Take 2 (two) tablets by mouth once daily Reasons: Generalized Anxiety Disorder, Major Depressive Disorder Active Encounters Date Type Department Care Team Description 05/28/2025 3:10 PM CDT - 05/28/2025 11:59 PM CDT Hospital Encounter [facility] Maternal & Care [address] [place] [address] Brandee Enrique MD Discharge Disposition: Home or Self Care from Last 3 Months Social History Tobacco Use Types Packs/Day Years Used Date Smoking Tobacco: Never Smokeless Tobacco: Never Tobacco Cessation:Counseling Given: Not Answered Alcohol Use Standard Drinks/Week Comments Not Currently 0 (1 standard drink = 0.6 oz pur e alcohol) Estimated Date of Delivery Comme nts Yes 07/22/2025 Based on last me nstrual period of 10/15/2024 Sex and Gender Information Value Date Recorded Sex Assigned at Not on file Legal Sex Female 11:57 AM WEAVING INSTRUCTOR Gender Identity Not on file Sexual Orientation Not on file Last Filed Vital Signs Vital Sign Reading Time Taken Comments Blood Pressure 122/71 03/13/2025 2:27 PM CDT Pulse 80 03/13/2025 2:27 PM CDT Temperature - - Respiratory Rate - - Oxygen Saturation - - Inhaled Oxygen Concentration - - Weight 88 kg (194 lb) 03/13/2025 3:18 PM CDT Height 175.3 cm (5' 9) 03/13/2025 3:18 PM CDT Body Mass Index 28.65 03/13/2025 3:18 PM CDT Plan of Treatment Health Maintenance Due Date Last Done Comments HIV SCREENING 2007 DTAP/TDAP/TD VACCINES (1 - Tdap) 2011 HEPATITIS B VACCINE (1 of 3 - 19+ 3-dose series) 2011 PAP SMEAR 2013 HPV VACCINE (1 - 3-dose SCDM series) 2019 DEPRESSION SCREENING 10/03/2024 OB-ONE HOUR GLUCOSE 04/15/2025 OB-TDAP CURRENT 04/22/2025 08/21/2021, OB-RHOGAM INJECTION 04/29/2025 COVID-19 VACCINE ( - season) 2025 01/27/2021, 12/30/2020 INFLUENZA VACCINE (#1) 2025 , 08/05/2023, 08/04/2022, Additional history exists Respiratory Syncytial Virus (RSV) Vaccine Pt: or over 60 yrs (1 - Risk 1-dose series) 06/03/2025 OB-GROUP B STREP SCREEN 06/17/2025 ZOSTER VACCINE (1 of 2) 2042 HEPATITIS C SCREENING Completed 07/24/2021 HIB VACCINE Aged Out No longer eligi ble based on patient's age to complete this topic MENINGOCOCCAL (Group B) VACCINE SHARED DECISION-MAKING Aged Out No longer eligible based on patient's age to complete this topic MENINGOCOCCAL GROUPS A/C/Y/W VACCINE Aged Out No longer eligible based on patient's age to complete this topic PNEUMOCOCCAL VACCINE Aged Out No long er eligible based on patient's age to complete this topic Procedures Procedure Name Priority Date/Time Associated Diagnosis Comments SONOGRAM - COMPLETE Routine 05/28/2025 3 :21 PM CDT History of labor, current , second trimester (HCC) History of PROM (premature rupture of membranes), currently , second trimester (HCC) 32 weeks gestation of ([facility]) Encounter for ultrasound to assess growth ([facility]) from Last 3 Months Results * Sonogram - Complete (05/28/2025 3:21 PM CDT) Linked Results Indication ======== Encounter for ultrasound to assess growth History ====== OB History 2. Para 1 [id number] 1. live 2021. Gest. age 36 w + 5 d. Weight 2,600 g. Sex of child: female. Details: Vaginal delivery; PPROM; PPH Lab Tests Test Date Result NIPT Low risk, Male Maternal Assessment Physical Exam Height 173 cm, 5 ft 8 in. Initial weight 85 kg, 187 lb. Initial BMI 28.43 kg/m Method ====== Transabdominal ultrasound. View: Good view ========= Bell . Number of fetuses: 1 Dating ====== Date Details Gest. age JONNA LMP 10/15/2024 32 w + 1 d 07/22/2025 Previous U/S 12/31/2024 CRL 47.0 mm 32 w + 5 d 07/18/2025 U/S 05/28/2025 based upon AC, BPD, Femur, HC 33 w + 3 d 07/13/2025 Assigned dating based on the LMP, selected on 03/13/2025 32 w + 1 d 07/22/2025 General Evaluation Cardiac activity present. FHR 154 bpm. Presentation: cephalic Placenta: Placental site: anterior Umbilical cord: Cord vessels: 3 vessel cord - previously documented. Insertion site: normal insertion - previously documented Amniotic fluid: Amount of AF: normal. MVP 6.4 cm. ROSE 15.5 cm. Q1 5.7 cm, Q2 6.4 cm, Q3 1.0 cm, Q4 2.4 cm Biometry BPD 86.2 mm 34w 5d 97% Hadlock HC 297.4 mm 32w 6d 32% Hadlock AC 298.8 mm 33w 6d 90% Hadlock Femur 61.7 mm 32w 0d 33% Hadlock Humerus 56.3 mm 32w 5d 68% Brody HC / AC 1.00 -/- Hadlock Weight Calculation: EFW 2,167 g 76% Hadlock EFW (lb,oz) 4 lb 12 oz EFW by Hadlock ([id number]) overall normal range, but the AC is >90% Growth Overview Exam date GA BPD (mm) HC (mm) AC (mm) FL (mm) HL (mm) EFW (g) 03/13/2025 21w 2d 52.9 78% 187.8 31% 170.6 68% 38.2 73% 34.4 63% 469 80% 05/28/2025 32w 1d 86.2 97% 297.4 32% 298.8 90% 61.7 33% 56.3 68% 2167 76% Anatomy The following structures appear normal: Abdomen Stomach. Kidneys. Bladder. sex: male. Impression ========= Single, live, intrauterine at 32w 1d The size is overall normal range, but the AC is >90% . The amniotic fluid volume is normal. No major malformations were seen within the limitations of ultrasound Follow-up ======== Growth US in 4 weeks, or as clinically indicated. Coding ====== Diagnoses Z36.89: Encounter for other specified screening Procedures 45093: US Preg Uterus Follow Up [employer] PACS Anatomical Region Laterality Modality Other 05/28/2025 3:21 PM CDT Lencho Velazquez MD [facility] ORDERABLES Edited Result - Final from Last 3 Months Insurance [facility] MEDICAID - OUT OF STATE [facility] MEDICAID [facility] Care Teams Peoplesoft Financial Developer Relationship Specialty Start Date End Date Alfredo Treviño MD [address] [phone] PCP - General 08/19/22
--- OUTSIDE RECORDS SUMMARY | 2025-07-03 17:19 | XMS_ITS | Clinical Summary ---
Author Organization [facility] Address [address] [place] [phone] Phone Care Team Providers Care Owner Name Role Phone Unavailable Primary Care Provider Unavailabl e Encounters Date Type Department Care Team Description 07/02/2025 External Device Data ST[facility] ABSTRACTION Provider, Abstract 06/18/2025 External Device Data [facility] ABSTRACTION Provider, Abstract 05/08/2025 External Device Data [facility] ABSTRACTION Provider, Abstract 04/17/2025 External Device Data [facility] ABSTRACTION Provider, Abstract 04/17/2025 External Device Data ST[facility] ABSTRACTION Provider, Abstract 04/02/2025 External Device Data ST[facility] ABSTRACTION Provider, Abstract 04/02/2025 External Device Data STL ABSTRACTION Provider, Abstract 04/02/2025 External Device Data STL ABSTRACTION Provider, Abstract from Last 3 Months Social History Tobacco Use Types Packs/Day Years Used Date Smoking Tobacco: Never Assessed Comments Unknown Sex and Gender Information Value Date Recorded Sex Assigned at Not on file Legal Sex Female 2:32 PM CDT Gender Identity Not on file Sexual Orientation Not on file Plan of Treatment Health Maintenance Due Date Last Done Comments HEPATITIS B VACCINES (1 of 3 - 19+ 3-dose series) 2011 HPV/Cotest (21-29) 2013 CERVICAL CANCER SCREENING 2022 HPV/Cotest (30-65) 2022 PAP SMEAR 2022 INFLUENZA VACCINE (#1) 2025 , 08/05/2023, 08/04/2022, Additional history exists COVID-19 Vaccine (3 - 2024-2 6 season) 2025 01/27/2021, 12/30/2020 DTAP/TDAP/TD VACCINES (5 - T d or Tdap) 08/21/2031 08/21/2021, 04/27/2007, 05/08/1998, Additional history exists HPV VACCINES Completed 02/15/2008, 10/03, 08/15/2007 Insurance [facility]
--- OUTSIDE RECORDS SUMMARY | 2025-07-03 17:19 | XMS_ITS | Clinical Summary ---
Author Organization [facility] Address [address] [place] [address] Care Team Providers Care Certified Pharmacy Tech Name Role Phone Natalia Price MD Primary Care Provider [phone] Allergies Active Allergy Reactions Criticality Noted Date Comments Sulfa Antibiotics Rash Low 07/24/2021 Medications fluticasone propionate (FLONASE) 50 MCG/ACT nasal sprayIndications :Allergic rhinitis, unspecified seasonality, unspecified trigger 2 sprays by Nasal route daily. 16 g 5 10/21/2021 Active vitamin, low iron, 27-0.8 mg tablet Take 1 tablet by mouth daily. Active sertraline (ZOLOFT) 100 MG tabletIndication s:KERVIN (generalized anxiety disorder),Mild episode of recurrent major depressive disorder TAKE 1 TABLET(100 MG) BY MOUTH DAILY 90 tablet 2 01/07/2025 Active Active Problems Problem Noted Date Diagnosed Date [...] Date of Delivery Comme nts Yes 07/23/2025 Immunizations Immunization Administration Dates Next Due Dtap (Acel-Immune) 05/08/1998,01/02/1994 [...] Stroke Maternal Grandfather Cancer Mother Breast cancer henao rvivor 2016 Cancer Paternal Grandfather Throat Cancer Paternal Grandmother Colon Relation Status Comments Brother Father Alive Maternal Grandfather Mother Alive Paternal Grandfather Paternal Grandmother Social History Tobacco Use Types Packs/Day Years Used Date Smoking Tobacco: Never Smokeless Tobacco: Never Tobacco Cessation:Counseling Given: Yes Comments:counseled by Dr Price Alcohol Use Standard Drinks/Week Comments Yes 3.3 (1 standard in k = 0.6 oz pure alcohol) Social drinker on weekends when out with friends PHQ-2 Answer Date Recorded Patient Health Questionnaire-2 Score 0 12/18/2024 Estimated Date of Delivery Comme nts Yes 07/23/2025 Sex and Gender Information Value Date Recorded Sex Assigned at Female 10/23/2024 12:54 PM PHYSICIAN ASST Legal Sex Female 4:27 PM CDT Gender [...] 1:27 PM CDT Height 175.3 cm (5' 9) 12/18/2024 1:27 PM CDT Body Mass Index 26.88 12/18/2024 1:27 PM CDT Plan of Treatment Upcoming Encounters Date Type Department Care Team (Late st Contact Info) Description 09/18/2025 8:00 AM PHYSICIAN ASST Office Visit [facility] - [address] [address] [address] [place] [address] [place] [address] [place] [address] [address] [place] [address] Health Maintenance Due Date Last Done Comments Hepatitis B Vaccines (1 of 3 - 19+ 3-dose series) 2011 Cervical Cancer Screening Pap with HPV Testing (Age 30 to 64) Every 5 Years 2022 Cervical Cancer Screening Pap Smear (Age 30 to 64) Every 3 Years 01/02/2024 01/01/2021 Cervical Cancer Screening with HPV 01/02/2024 COVID-19 Vaccine ( - 2024- season) 2025 01/27/2021, 12/30/2020 Influenza Adult (#1) 2025 09/19/2024, 08/05/2023, 08/04/2022, Additional history exists Annual Physical 09/19/2025 09/19/2024, 1112/2022, 08/04/2022, Additional history exists DTaP, Tdap and Td Vaccines (5 - Td or Tdap) 08/21/2031 08/21/2021, 04/27/2007, 05/08/1998, Additional history exists Meningococcal Vaccine Aged Out 04/27/2007 No jonny daniel eligible based on patient's age to complete this topic HPV Vaccines Completed 02/15/2008, 10/03, 08/15/2007 Hepatitis C Completed 07/24/2021 PHQ-2 (Physician [place]) Completed 12/18/2024 Meningococcal B Vaccine Aged Out No l onger eligible based on patient's age to complete this topic Pneumococcal Vaccine: Pediatrics (0 to 5 Years) and At-Risk Patients (6 to 49 Years) Aged Out No longer eligible based on patient's age to complete this topic RSV Immunization or 60+ Years (No Doses Required) Completed RSV Immunizations Under 20 Months Aged Out No longer eligible based on patient's age to complete this topic Procedures Procedure Name Priority Date/Time Associated Diagnosis Comments HEPATITIS C ANTIBODY Routine 07/24/2021 12:40 PM CDT Annual physical exam Establishing care with new doctor, encounter for OUTSIDE CYTOPATH CERV/VAG INTERPRET (PAP) (SCAN ORDER) 01/01/2021 from Last 3 Months or Most Recently Relevant to Health Maintenance Results * HEPATITIS C ANTIBODY (07/24/2021 12:40 PM CDT) HEPATITIS C AB NON-REACTI VE NON-REACT MANJULA 07/24/2021 9:36 PM CDT [facility] Comment: ANTIBODIES TO HCV NOT DETECTED. DOES NOT EXCLUDE THE POSSIBILITY OF EXPOSURE TO HCV. 07/24/2021 12:4 0 PM CDT us Natalia Price MD LABORATORY Final Result [facility] [address] [place] [address], [id number] * OUTSIDE CYTOPATH CERV/VAG INTERPRET (PAP) (01/01/2021) 01/01/2021 Narrative 01/01/2021 Ordered by an unspecified provider. us Documents Scanned SCANNING Final Result from Last 3 Months or Most Recently Relevant to Health Maintenance Insurance [employer] Care Teams Certified Pharmacy Tech Relationship Specialty Start Date End Date Natalia Price MD [address] [facility] [address] [place] [id number] PCP - General INTERNAL MEDICINE 07/24/21
[2025-07-03 17:20] VITALS: BMI 31.7
[2025-07-03 18:25] LABS: Total Volume 24 Hour Urine 1400 ml
[2025-07-03 18:37] LABS: Creatinine Clearance Urine 123.0 ml/min (75-125); Serum Creat 0.79; Total Protein Urine 24 Hr 252 mg/24hr (28-141); Total Protein Urine Random 18 mg/dL
== END 2025-07-03 17:02 | disposition home or self-care (01) ==
LOC: ANHOBOP 17:17
PROVIDERS: Visit Provider Obstetrics & Gynecology
DX: O13.9 Gestational [pregnancy-induced] hypertension without significant proteinuria, unspecified trimester (principal); Z3A.00 Weeks of gestation of pregnancy not specified
CPT/HCPCS: 81050; 82575; 84156

== ENCOUNTER 2025-07-05 15:33 | Outpatient (RCR) | payer OTHER, SELFPAY ==
[2025-07-02 15:32] LABS: Hematocrit 35.9 % (37.0-47.0); Hemoglobin 12.1 g/dL (12.0-15.0); Immature Granulocyte Percent A 0.5 % (0-0.5); Lymphocytes Absolute Auto 1.81 K/mm3 (0.9-3.2); Mean Corpuscular HGB Conc 33.7 g/dl (32-36); Mean Corpuscular Hemoglobin 29.6 pg (26-34); Mean Corpuscular Volume 87.8 fl (80-100); Nucleated Red Blood Cells Absolute Auto 0.000 K/mm3 (0.0-0.012); Nucleated Red Blood Cells Perc 0.0 % (0.0-0.2); Platelet Count Result 206 k/mm3 (150-375); Red Blood Count 4.09 M/mm3 (4.2-5.4); White Blood Count 11.8 K/mm3 (4.5-10.0)
[2025-07-02 15:42] LABS: Total Protein Urine Random 22 mg/dL; Ur Ttl Prot Creatinine Ratio 0.21 mg/mg (0-0.20)
[2025-07-02 15:43] LABS: Alanine Aminotransferase 13 U/L (6-35); Albumin Level 3.7 g/dL (3.5-5.1); Alkaline Phosphatase 90 U/L (38-126); Anion Gap 7 mmol/L (4-12); Aspartate Amino Transferase 22 U/L (14-36); Bilirubin,Total 0.3 mg/dL (0.2-1.3); Blood Urea Nitrogen 12 mg/dL (7-17); Calcium 9.8 mg/dL (8.4-10.2); Carbon Dioxide 20 mmol/L (22-30); Chloride 106 mmol/L (98-107); Estimated Glomerular Filt Rate > 60; Glucose 101 mg/dL (65-110); Potassium 4.2 mmol/L (3.4-5.0); Sodium 133 mmol/L (137-145); Total Protein 6.6 g/dL (6.3-8.2); Uric Acid 5.9 mg/dL (2.5-7.5)
[2025-07-02 15:48] LABS: Add Urine Microscopic? YES; Appearance Urine Clear (Clear); Glucose Urine UA Negative (Negative); Leukocyte Esterase Ur 1+ LEU/UL (Negative); Need Manual Microscopic Reviewed; Nitrate Urine Negative (Negative); Non Pathogenic Casts 0-2; Specific Grav Ur 1.017 (1.001-1.035)
[2025-07-02 16:14] VITALS: BP 141/84; PULSE 85
[2025-07-05 16:10] VITALS: BP 133/83; PULSE 82
== END 2025-07-13 09:27 | disposition other institution (70) ==
LOC: ANHOBOP 15:33
PROVIDERS: Visit Provider Obstetrics & Gynecology
DX: O26.893 Other specified pregnancy related conditions, third trimester (principal); R03.0 Elevated blood-pressure reading, without diagnosis of hypertension; Z3A.37 37 weeks gestation of pregnancy
CPT/HCPCS: 36415; 59025; 80053; 81001; 82570; 84156; 84550; 85025; 87086

== ENCOUNTER 2025-07-08 12:16 | Inpatient (IN) | payer OTHER, BC, SELFPAY ==
[2025-07-08] VITALS (111 sets, daily range): BP systolic 109–178; BP diastolic 61–99; PULSE 70–126; TEMP 36.3–36.4; O2SAT 94–100; BMI 31.8
--- NOTE | 2025-07-08 12:25 | PM.IMHP ---
H&P: HPI History of Present Illness Date/Time: 07/08/25 12:25 Chief Complaint: Hypertension Narrative: 34 y/o at 38 weeks with gestational hypertension. Denies severe symptoms. PNC significant for 1. History of late delivery. Thirty-six week PPROM, history of hemorrhage, history of anxiety / depression doing well on sertraline. Review of Systems Review of Systems: All systems reviewed & are unremarkable except as noted in HPI and below Constitutional: Constitutional: Reports no additional constitutional complaints and Denies headache(s) Eyes: Eyes: Denies spots in vision ENT: Reports system reviewed and no additional complaints, except as documented and Denies headache(s) Cardiovascular: Cardiovascular: Denies chest pain and Denies dyspnea Respiratory: Respiratory: Denies dyspnea Gastrointestinal: Gastrointestinal: Reports no additional gastrointestinal complaints Genitourinary: Genitourinary: Reports amenorrhea Musculoskeletal: Musculoskeletal: Reports no additional musculoskeletal complaints Integumentary/Breasts: Skin/Breast: Denies breast mass and Denies rash Neurologic: Denies headache(s) Psychiatric: Psychiatric: Reports no additional psychiatric complaints [facility] Past Medical History Medical History Depression Anxiety Surgical History Surgical History S/P tonsillectomy Family History Family History Mother Breast cancer Father Hypertension Social History Social History Smoking status: Never smoker Second hand tobacco smoke exposure: No Substance use: never Lack of Transportation: No Lack of Food: Never True Current Housing: I Have Housing Concerned About Future Housing: No Difficulty Paying Gas/Electric Bills: No Difficulty Paying for Meds: No Currently Unemployed: No Education: Bachelor's Degree Difficulty w/ Childcare or Family Care: No Spiritual care concerns: No Meds Home Medications and Allergies Home Medications ?Medication ?Instructions ?Recorded ?Confirmed ?Type sertraline 50 mg tablet (Zoloft) 100 mg (2 x 50 mg) PO DAILY 90 08/18/22 07/08/25 Rx days #90 tabs vitamins 30 30 mg iron-10 cap PO 01/30/25 06/28/25 History mg iron-folic acid 1 mg-om3 capsule Allergies Allergy/AdvReac Type Severity Reaction Status Date / Time Sulfa (Sulfonamide Allergy Mild Rash Verified 07/08/25 15:13 Antibiotics) Exam Const: General: no acute distress Eyes: General: appearance normal, both eyes and all related structures Resp: Effort & Inspection: normal respiratory effort Cardio: Rate: regular rate GI: Other: Gravid no fundal tenderness no right upper quadrant pain : Other: cervix 1.5/50/-3. Skin: General skin exam: no rashes or lesions noted Neuro: Cognition (Neuro): normal cognition Extrem: General: normal to inspection Psych: Mental Status: mental status grossly normal Assessment and Plan Assessment and plan (1) Gestational hypertension: Code(s): O13.9 - Gestational [-induced] hypertension without significant proteinuria, unspecified trimester Status: Acute Assessment and Plan: IOL recommended. Reviewed risk and benefits of IOL and risk of continuing . Pre- e labs. Cytotec.
[2025-07-08 13:05] LABS: Hematocrit 37.8 % (37.0-47.0); Hemoglobin 12.8 g/dL (12.0-15.0); Immature Granulocyte Percent A 0.6 % (0-0.5); Lymphocytes Absolute Auto 2.66 K/mm3 (0.9-3.2); Mean Corpuscular HGB Conc 33.9 g/dl (32-36); Mean Corpuscular Hemoglobin 30.0 pg (26-34); Mean Corpuscular Volume 88.5 fl (80-100); Nucleated Red Blood Cells Absolute Auto 0.000 K/mm3 (0.0-0.012); Nucleated Red Blood Cells Perc 0.0 % (0.0-0.2); Platelet Count Result 206 k/mm3 (150-375); Red Blood Count 4.27 M/mm3 (4.2-5.4); White Blood Count 12.9 K/mm3 (4.5-10.0)
--- NOTE | 2025-07-08 13:37 | LDADM ---
This patient, Jeannine Myles, was admitted to Labor/Delivery/Recovery 103 on 07/08/25 at 12:16. Plans for labor, pain management and were discussed with patient. Patient/family oriented to hospital policies and general routines including ID bracelet, bed and alarms, visiting hours, pain management, procedures, bathroom and other care routines, personal items, smoking policy, room service/diet and guest tray routines, infant security routines, and visiting hours. Patient/Family are encouraged to report perceived risks to care and to ask questions if they do not understand what they are told or what they should do. See OBIX for further documentation.
[2025-07-08 13:53] LABS: Syphilis IgG/IgM Antibody Non-Reactive (Nonreactive)
[2025-07-08 16:06] LABS: Alanine Aminotransferase 11 U/L (6-35); Albumin Level 3.8 g/dL (3.5-5.1); Alkaline Phosphatase 118 U/L (38-126); Anion Gap 7 mmol/L (4-12); Aspartate Amino Transferase 25 U/L (14-36); Bilirubin,Total 0.5 mg/dL (0.2-1.3); Blood Urea Nitrogen 10 mg/dL (7-17); Calcium 9.6 mg/dL (8.4-10.2); Carbon Dioxide 18 mmol/L (22-30); Chloride 105 mmol/L (98-107); Estimated CRCL calculation 124 ml/min; Estimated Glomerular Filt Rate > 60; Glucose 110 mg/dL (65-110); Potassium 3.6 mmol/L (3.4-5.0); Sodium 130 mmol/L (137-145); Total Protein 7.0 g/dL (6.3-8.2)
[2025-07-08] MEDS: OXYTOCIN 30 UNITS/NS 500 ML 30 UNITS/500 ML BAG IV CONT (17:55)
[2025-07-08] MEDS: LACTATED RINGERS 1,000 ML 125 ML IV CONT ×2 (17:55→20:19)
--- NOTE | 2025-07-08 18:48 | WPDANESEPP ---
Anes - Eval Pre Procedure Procedure: Labor Epidural Date/Time: 07/08/25 18:48 Surgeon: Stefan Preop Diagnosis: Labor Pain Pre Op Diagnosis: Medical IOL Patient Data Age: 34 Gender: F Height: 1.75 m Weight: 98 kg Last Vital Signs Pulse 92 07/08/25 18:45 BP 153/85 H 07/08/25 18:45 O2 Del Method Room Air 07/08/25 13:37 Allergies Allergy/AdvReac Type Severity Reaction Status Date / Time Sulfa (Sulfonamide Allergy Mild Rash Verified 07/08/25 15:13 Antibiotics) Home Medications ?Medication ?Instructions ?Recorded ?Confirmed ?Type sertraline 50 mg tablet (Zoloft) 100 mg (2 x 50 mg) PO DAILY 90 08/18/22 07/08/25 Rx days #90 tabs vitamins 30 30 mg iron-10 cap PO 01/30/25 06/28/25 History mg iron-folic acid 1 mg-om3 capsule Laboratory Tests 07/08/25 07/08/25 12:56 15:42 WBC 12.9 H K/mm3 (4.5-10.0) RBC 4.27 M/mm3 (4.2-5.4) Hgb 12.8 g/dL (12.0-15.0) Hct 37.8 % (37.0-47.0) MCV 88.5 fl (80-100) MCH 30.0 pg (26-34) MCHC 33.9 g/dl (32-36) RDW 13.8 % (11.5-14.5) Plt Count 206 k/mm3 (150-375) MPV 10.0 fl (7.4-10.4) Immature Gran % (Auto) 0.6 H % (0-0.5) Neut % (Auto) 72.3 % (45.5-73.1) Lymph % (Auto) 20.6 % (18.3-44.2) [place] % (Auto) 5.4 % (2.6-8.5) Eos % (Auto) 0.9 % (0-4.4) Baso % (Auto) 0.2 % (0.2-1.2) Lymph # (Auto) 2.66 K/mm3 (0.9-3.2) [place] # (Auto) 0.7 H K/mm3 (0.1-0.6) Eos # (Auto) 0.1 K/mm3 (0-0.3) Baso # (Auto) 0.0 K/mm3 (0.0-0.1) Abs Immat Gran (auto) 0.08 H K/mm3 (0.00-0.031) Absolute Neuts (auto) 9.3 H K/mm3 (1.3-6.7) Absolute Nucleated RBC 0.000 K/mm3 (0.0-0.012) Nucleated RBC % 0.0 % (0.0-0.2) Sodium 130 L mmol/L (137-145) Potassium 3.6 mmol/L (3.4-5.0) Chloride 105 mmol/L (98-107) Carbon Dioxide 18 L mmol/L (22-30) Anion Gap 7 mmol/L (4-12) BUN 10 mg/dL (7-17) Creatinine 0.70 mg/dL (0.7-1.0) Estim Creat Clear Calc 124 ml/min Estimated GFR > 60 (59 - ) Glucose 110 mg/dL (65-110) Calcium 9.6 mg/dL (8.4-10.2) Total Bilirubin 0.5 mg/dL (0.2-1.3) AST 25 U/L (14-36) ALT 11 U/L (6-35) Alkaline Phosphatase 118 U/L (38-126) Total Protein 7.0 g/dL (6.3-8.2) Albumin 3.8 g/dL (3.5-5.1) Syphilis IgG/IgM Ab Non-reactive (Nonreactive) Blood Type A Positive Antibody Screen Negative Patient hx anesthesia problems: none Family hx anesthesia problems: none Results Review: All pre-operative results and documents have been reviewed as part of the pre-operative evaluation. [facility] Past Medical History Medical History Depression Anxiety Surgical History Surgical History S/P tonsillectomy Family History Family History Mother Breast cancer Father Hypertension Social History Social History Smoking status: Never smoker Second hand tobacco smoke exposure: No Substance use: never Lack of Transportation: No Lack of Food: Never True Current Housing: I Have Housing Concerned About Future Housing: No Difficulty Paying Gas/Electric Bills: No Difficulty Paying for Meds: No Currently Unemployed: No Education: Bachelor's Degree Difficulty w/ Childcare or Family Care: No Spiritual care concerns: No Exam Day of Procedure 07/08/25 18:48 Patient weight: overweight Heart: regular rate and rhythm Lungs: normal air movement Airway: Mallampati scale class II Neurological: alert and oriented
[2025-07-09] VITALS (200 sets, daily range): BP systolic 106–170; BP diastolic 57–99; PULSE 65–118; RESP 18; TEMP 36.5–36.9; O2SAT 93–100
[2025-07-09] MEDS: LIDOCAINE 1% LOCAL INJ 20 ML VIAL (10:36)
[2025-07-09] MEDS: OXYTOCIN 30 UNITS/NS 500 ML 30 UNITS/500 ML BAG 125 UNITS IV CONT (11:04)
--- NOTE | 2025-07-09 11:22 | S_PTH ---
PATIENT: Jeannine Myles LOC: ANHOB2 U#:[id number] AGE/SX: 34/F ROOM: 281 RE07/08/[address]: Lencho Aviles MD : 1990 BED: 00 DIS: 07/10/2025 SPEC #: [id number] RECD: 07/10/25 07:10 STATUS: TYRONE RENiles #: [id number] DAVID: 07/09/25 11:[address]: Lencho Aviles DEPT: [facility] Surgical RECD BY: Yenny Silverio ENTERED: 07/10/25 07:10 SP TYPE: Surgical OTHR DR: UNKNOWN,DOCTOR Tissues: A - Placenta Procedures: Hematoxylin and Eosin Stain Gross and Microscopic Level 5
[2025-07-09] MEDS: ACETAMINOPHEN 325 MG TABLET 650 MG PO ×2 (11:57→19:57)
[2025-07-09] MEDS: SERTRALINE HCL 50 MG TABLET 100 MG PO (11:58)
[2025-07-09] MEDS: WITCH HAZEL 40 PADS 1 PAD TOPICAL (12:36)
[2025-07-09] MEDS: BENZOCAINE 20% AER SPR (*SP) 56 GM CAN 1 SPRAY TOPICAL (12:37)
--- NOTE | 2025-07-09 13:35 | OBPPTRN ---
Patient transferred to post room #281 via wheelchair. Support person present. Oriented to unit, room, information board, rooming in, admission packet and security measures. Patient verbalizes understanding.
[2025-07-09] MEDS: IBUPROFEN 600 MG TABLET PO (13:48)
--- NOTE | 2025-07-09 16:38 | PM.OBPNVD ---
OB - PN: Subj Subjective Date/time seen: 07/09/25 0745 Interval history: Cat 1 tracing, pain not well controlled, will consult anesthesia and then return for ROM. OB - PN: Obj Data Labs 07/08/25 12:56 07/08/25 15:42 OB - PN A/P Time Spent With Patient Time: Total time spent is greater than 50% in coordination of care (as documented) at patient's floor/unit and/or counseling patient:
--- NOTE | 2025-07-09 16:43 | PM.OBPNVD ---
OB - PN: Subj Subjective Date/time seen: 07/09/25 0920 Interval history: cervix complete, attempted arom, no bag palpated, no fluid. OB - PN: Obj Data Labs 07/08/25 12:56 07/08/25 15:42 OB - PN A/P Time Spent With Patient Time: Total time spent is greater than 50% in coordination of care (as documented) at patient's floor/unit and/or counseling patient:
--- NOTE | 2025-07-09 16:44 | PM.OBPRVD ---
OB - Vaginal Delivery Note Procedure Delivery date: 07/09/25 Events: Gestational Hypertension Intrapartal Events: Decelerations Induction method: Per Misoprostol Protocol and Per Pitocin Protocol Delivery monitor: External FHT Route of delivery: Episiotomy description: None Laceration Description: Perineal - 2nd Degree Delivery repair: vicryl (2.0) Specimen: No Quantitative Blood Loss (ml): 300 Anesthesia type: Epidural Disposition: Floor Complications: No immediate complications Narrative: She was admitted for medical induction of labor for gestational hypertension. She received Cytotec for cervical ripening. She then had subsequent Pitocin. She had epidural placed on request she progressed to active labor. AROM was attempted no bag of water palpated no fluid. She dilated to complete. Variable decelerations noted with second stage of labor. head was delivered in the MICHELL position. There was a loose nuchal cord which was manually reduced. Nose and mouth was suction at the perineum. With the 2nd push the was delivered and placed on maternal abdomen vigorously crying. There was noted to be a true knot in the cord which was loose. Peds was in attendance. Delayed cord clamping for 1 minute until the cord was a pulsatile. And then the cord was doubly clamped and cut. Pitocin was started. Cord blood and cord gases were obtained. Placenta delivered spontaneously and intact with trailing membranes. Uterine tone normal. She did sustain a second-degree perineal laceration repaired with 2-0 Vicryl. [place] Baby Date of : 07/09/25 Time of : 10:21 Gestational Age by Date: 38 Infant gender: Male Weight (pounds): 7 Weight (ounces): 13 presentation: vertex position: Right Occiput Anterior Placenta delivery description: Spontaneous Cord Vessel Description: 3 Vessels, Nuchal Cord, True Knot, Loose, Reduced ( Manually) and Delayed Cord Clamping score one minute: 8 score five minutes: 8
--- NOTE | 2025-07-09 18:15 | PC.NURSE ---
Breast pump provided due to [ transfer]. Instructions given on cleaning, care, usage, that there should be no pain, pumping schedule for milk production, collection, and storage of human milk. Patient was assessed for correct placement, flange size, to pump for adequate milk production every 3 hours (8 times in 24 hours) 1-2 times at night. Parents are encouraged to record the pumping schedule on the pumping log provided if desired. Lanolin, bottle brush, soap, and basin provided.?Mother voiced understanding of the education shared along with mom/baby guide for additional resource information. Reported to the Primary RN.
[2025-07-10 03:02] VITALS: BP 139/81; PULSE 95; RESP 16; TEMP 36.6; O2SAT 99
[2025-07-10] MEDS: ACETAMINOPHEN 325 MG TABLET 650 MG PO (03:15)
[2025-07-10 05:11] LABS: Hematocrit 30.7 % (37.0-47.0); Hemoglobin 10.2 g/dL (12.0-15.0)
[2025-07-10 07:30] VITALS: BP 142/89; PULSE 80; RESP 16; TEMP 36.8; O2SAT 100
--- NOTE | 2025-07-10 07:32 | PM.OBPNVD ---
OB - PN: Subj Subjective Date/time seen: 07/10/25 07:32 Interval history: She denies headache scotomata or RUQ pain. Patient comments: pain well controlled, tolerating diet and other (Decreasing lochia.) OB - PN: Obj Data Labs 07/10/25 03:13 07/08/25 15:42 Labs: Laboratory Results - last 24 hr 07/10/25 03:13 Hgb 10.2 L Hct 30.7 L OB - PN A/P Assessment and Plan (1) (normal spontaneous vaginal delivery): Code(s): O80 - Encounter for full-term uncomplicated delivery Status: Acute Assessment and Plan: She is doing well. Baby transferred yesterday to [facility]. Mild labile blood pressures no PIH symptoms. Will discharge home on Labetolol. PIH precautions discusses. Plan day: 1 Plan: routine care and discharge home Comments: Patient doing well. Time Spent With Patient Time: Total time spent is greater than 50% in coordination of care (as documented) at patient's floor/unit and/or counseling patient: Exam Psych: Affect: normal affect Other: Abd: fundus firm below umbilicus, nontender Perineum: healing Ext: nontender
[2025-07-10 08:32] VITALS: PULSE 80
[2025-07-10] MEDS: LABETALOL HCL 100 MG TABLET PO (08:32)
[2025-07-10] MEDS: IBUPROFEN 600 MG TABLET PO (08:32)
[2025-07-10] MEDS: DOCUSATE SODIUM 100 MG CAPSULE PO (08:32)
[2025-07-10] MEDS: MULTIVIT/MIN/PREN/FOL AC/IRON TABLET 1 TAB PO (08:32)
[2025-07-10] MEDS: SERTRALINE HCL 50 MG TABLET 100 MG PO (08:32)
--- NOTE | 2025-07-10 10:32 | PC.NURSE ---
Consulted with mother concerning needs and she shared her ability to independently use her breast pump without pain, her is in the NICU. Encouraged consistently pumping to protect milk supply, discussed pumping schedule for milk production, collection, and storage of human milk. Reinforced understanding of milk production, transition of milk, signs of adequate intake, transition of stool, prevention/relief of engorgement, plugged ducts, mastitis, community resources, and when to call a provider using the resource of the feeding sheet along with the mom and baby guide. Mother voiced understanding of the information shared, is confident to continue effectively use her breast pump at home, when to call for assistance, denies any additional assistance or education at this time. Reported to the Primary RN.
[2025-07-12 11:15] VITALS: BP 147/80; PULSE 94; RESP 20; TEMP 36.7; O2SAT 98
--- NOTE | 2025-07-31 21:32 | PM.OBDSVD ---
DS: Admitting Diagnosis Discharge Date 07/10/25 Admitting Diagnosis Gestational hypertension DS: Discharge Diagnosis Discharge Diagnosis (1) Gestational hypertension: Code(s): O13.9 - Gestational [-induced] hypertension without significant proteinuria, unspecified trimester Status: Acute (2) Vaginal delivery: Code(s): O80 - Encounter for full-term uncomplicated delivery Status: Acute OB - DS: Summary Hospital Course Hospital Course: She was admitted for medical induction of labor for gestational hypertension. She had an uncomplicated vaginal delivery. She had mildly elevated blood pressures after delivery. No severe range blood pressures. Labetolol was started. She denied any severe symptoms. Her baby was transferred to [facility] after delivery. She requested discharge to home on day 1. She was instructed on follow up and PI precautions. OB Procedures : Ultrasound OB Procedures Intrapartum: Spontaneous Vag Delivery OB Procedures: : None Peripartum Data Infant Delivery Method: Natural Vaginal Laceration Description: Perineal - 2nd Degree Episiotomy description: None complications: none Status at Discharge Functional status at discharge: independent ambulation Time Spent with Patient Time attestation: Total time spent providing and/or coordinating discharge services: Exam Const: General: cooperative Orientation/consciousness: oriented to person, oriented to place and oriented to time HENMT: Face/Nose/Sinus: Normal external nose present Eyes: General: appearance normal, both eyes and all related structures Resp: Effort & Inspection: normal respiratory effort GI: Inspection: normal to inspection Skin: General skin exam: normal color Neuro: General: oriented to person, oriented to place and oriented to time Extrem: General: normal to inspection and no calf tenderness Psych: Appearance: grossly normal Mental Status: mental status grossly normal DS: Data Data Completed and Pending Completed studies during hospitalization: Pending at discharge 07/09/25 11:22 Surgical [PTH] Routine Discharge Plan Discharge Attending physician on discharge: Lencho Aviles Consulting providers: Sara Stone Discharging Clinician: Lencho Aviles Anticipated Discharge Date/Time: 07/10/25 07:35 Patient Disposition: Home Activity: may shower and pelvic rest Diet: regular Discharge Instructions: Education: Mom and Baby Guide Given to: Mother Follow-Up: Call your delivering provider's office for an appointment to be seen in: 1 Week Mom and baby should come to the [facility] for the follow-up appointment. Appointment Date/Time: July 12, 2025 at 11:00 am What to expect at your follow-up visit: Blood Pressure Check Physical Assessment Call [phone] if you are unable to keep your appointment time. BREAST CARE: * Wear a snug supportive bra. * For engorgement discomfort: Breast Feeding: * Apply warm moist washcloths * Express milk as needed to relieve engorgement * Wear loose clothing Bottle Feeding: * May apply ice packs * For sore nipples: * Identify correct latch-on * Apply warm moist washcloths before and after nursing * Air dry nipples after nursing * May apply Lansinoh cream to nipples PERINEAL CARE: * Until bleeding stops, use your shruti bottle after urinating * Change your pad frequently throughout the day * You may take sitz baths several times a day (fill your bathtub with warm water and soak for 20 minutes.) Do NOT bathe in the water * No tub baths until seen by your physician - You may shower ACTIVITY: * Rest as much as possible. * Do not exercise or lift anything heavier than your baby (such as laundry or other children.) * Avoid stairs or driving as much as possible. * Do not put anything into the vagina. No douching, tampons, or sexual activity until seen by physician. NOTIFY PHYSICIAN IF YOU HAVE ANY QUESTIONS OR IF ANY OF THE FOLLOWING SYMPTOMS OCCUR: * If your vaginal bleeding becomes foul smelling. * If your vaginal bleeding becomes more heavy than a period or if your bleeding changes from pink to bright red. However, you may pass an occasional walnut-sized clot once or twice for the first week . * If you experience a sharp, shooting pain in your calves. * If you discover a hard, reddened area on your breast or if you experience flu-like symptoms. DIET: * Eat regular, well-balanced meals. * Drink plenty of fluids daily. If , drink to thirst. Patient Instructions: Antibiotic Form Patient Language: Uzbek Stand Alone Forms: General Discharge Information Follow-up/Referrals: Lencho Aviles MD [Physician, SENIOR APPLICATIONS ENGINEER] Referral Note: Follow up in office in 1 week Discharge Medications: New ibuprofen 600 mg Tablet 600 mg PO Q6H PRN (Reason: Cramping) Qty: 20 0RF Continued PNV [id number] 30 mg iron-10 mg iron-1 mg capsule PO sertraline [Zoloft] 50 mg Tablet 100 mg PO DAILY 90 Days Qty: 90 3RF No Action labetalol 200 mg tablet 200 mg PO Q12H Qty: 60 1RF labetalol 100 mg Tablet 200 mg PO Q12HR Qty: 60 0RF nifedipine [Procardia XL] 30 mg Tablet Extended Release 24hr 60 mg PO QAM Qty: 30 0RF Date of admission: 07/08/25 12:16 Primary Care Provider: UNKNOWN,DOCTOR Admitting Provider: Lencho Aviles Attending physician on admission: Lencho Aviles Condition: Stable
== END 2025-07-10 10:50 | disposition home or self-care (01) | DRG 807 ==
LOC: ANHLDR 13:35 → ANHOB2 07-09 13:35
PROVIDERS: Admitting Provider Obstetrics & Gynecology; Visit Provider Obstetrics & Gynecology
DX: O14.04 Mild to moderate pre-eclampsia, complicating childbirth (principal); Z37.0 Single live birth; Z3A.37 37 weeks gestation of pregnancy; O99.344 Other mental disorders complicating childbirth; F41.9 Anxiety disorder, unspecified; F32.A Depression, unspecified; O69.82X0 Labor and delivery complicated by other cord entanglement, without compression, not applicable or unspecified; O69.81X0 Labor and delivery complicated by cord around neck, without compression, not applicable or unspecified; O70.1 Second degree perineal laceration during delivery; O76 Abnormality in fetal heart rate and rhythm complicating labor and delivery
CPT/HCPCS: 36415; 80053; 85014; 85018; 85025; 86593; 86850; 86900; 86901; 88307; A9270; J2003; J2590; J2795; J7120

== ENCOUNTER 2025-07-17 18:00 | Observation (INO) | payer OTHER, SELFPAY ==
[2025-07-17] VITALS (107 sets, daily range): BP systolic 129–178; BP diastolic 67–95; PULSE 60–106; RESP 18; TEMP 36.2–37.1; O2SAT 94–100; BMI 30.4
[2025-07-17 16:57] LABS: Alanine Aminotransferase 27 U/L (6-35); Albumin Level 3.7 g/dL (3.5-5.1); Alkaline Phosphatase 69 U/L (38-126); Anion Gap 8 mmol/L (4-12); Aspartate Amino Transferase 28 U/L (14-36); Bilirubin,Total 0.3 mg/dL (0.2-1.3); Blood Urea Nitrogen 17 mg/dL (7-17); Calcium 9.4 mg/dL (8.4-10.2); Carbon Dioxide 24 mmol/L (22-30); Chloride 104 mmol/L (98-107); Estimated Glomerular Filt Rate > 60; Glucose 110 mg/dL (65-110); Potassium 3.6 mmol/L (3.4-5.0); Sodium 136 mmol/L (137-145); Total Protein 6.6 g/dL (6.3-8.2); Uric Acid 5.9 mg/dL (2.5-7.5)
[2025-07-17 17:16] LABS: Hematocrit 34.2 % (37.0-47.0); Hemoglobin 11.2 g/dL (12.0-15.0); Immature Granulocyte Percent A 0.5 % (0-0.5); Lymphocytes Absolute Auto 1.94 K/mm3 (0.9-3.2); Mean Corpuscular HGB Conc 32.7 g/dl (32-36); Mean Corpuscular Hemoglobin 29.5 pg (26-34); Mean Corpuscular Volume 90.0 fl (80-100); Nucleated Red Blood Cells Absolute Auto 0.000 K/mm3 (0.0-0.012); Nucleated Red Blood Cells Perc 0.0 % (0.0-0.2); Platelet Count Result 243 k/mm3 (150-375); Red Blood Count 3.80 M/mm3 (4.2-5.4); White Blood Count 8.6 K/mm3 (4.5-10.0)
--- OUTSIDE RECORDS SUMMARY | 2025-07-17 17:36 | XMS_ITS | Clinical Summary ---
Author Organization [facility] Address [address] [place] [phone] Phone Care Team Providers Care Business Development Intern Name Role Phone Unavailable Primary Care Provider [...] HPV VACCINES Completed 02/15/2008, 10/03, 08/15/2007 Insurance [facility]
--- OUTSIDE RECORDS SUMMARY | 2025-07-17 17:36 | XMS_ITS | Clinical Summary ---
Author Organization [facility] Address [address] [place] [address] Care Team Providers Care Safety Deposit Boxes Custodian Name Role Phone Natalia Price MD Primary Care Provider [phone] Allergies Active Allergy Reactions Criticality Noted Date [...] Sex Assigned at Female 10/23/2024 12:54 PM CROP OR GRAIN FARMWORKER Legal Sex Female 4:27 PM CDT Gender [...] st Contact Info) Description 09/18/2025 8:00 AM CROP OR GRAIN FARMWORKER Office Visit [facility] Multispecialty Care - [address] [address] [address] [place] [address] [place] [address] [place] [address] [address] [place] [address] Health Maintenance Due Date Last Done Comments Hepatitis A Vaccines (2 of 2 - 2-dose series) 01/12/2010 07/14/2009 Hepatitis B Vaccines (1 of 3 - 19+ 3-dose series) 2011 Cervical Cancer Screening Pap with HPV Testing (Age 30 to 64) Every 5 Years 2022 Cervical Cancer Screening Pap Smear (Age 30 to 64) Every 3 Years 01/02/2024 01/01/2021 Cervical Cancer Screening with HPV 01/02/2024 COVID-19 Vaccine ( season) 2025 01/27/2021, 12/30/2020 Influenza Adult (#1) [...] 08/15/2007 Hepatitis C Completed 07/24/2021 PHQ-2 (Physician [place]) Completed 12/18/2024 Meningococcal B Vaccine Aged Out [...] VE NON-REACT MANJULA 07/24/2021 9:36 PM CDT [facility] Comment: ANTIBODIES TO HCV NOT DETECTED. DOES NOT EXCLUDE THE POSSIBILITY OF EXPOSURE TO HCV. 07/24/2021 12:4 0 PM CDT Natalia Price MD LABORATORY Final Result [facility] [address] [place] [address], [id number] * OUTSIDE CYTOPATH CERV/VAG INTERPRET (PAP) (01/01/2021) 01/01/2021 Narrative 01/01/2021 Ordered by an unspecified provider. us Documents Scanned SCANNING Final Result from Last 3 Months or Most Recently Relevant to Health Maintenance Insurance [employer] Care Teams Safety Deposit Boxes Custodian Relationship Specialty Start Date End Date Natalia Price MD [address] [address] PCP - General INTERNAL MEDICINE 07/24/21
--- OUTSIDE RECORDS SUMMARY | 2025-07-17 17:36 | XMS_ITS | Clinical Summary ---
Author Organization [facility] Address [address] [place] [address] Care Team Providers Care Hat Lacer Name Role Phone Alfredo Treviño MD Primary Care Provider [phone] Source Comments [facility],non-owned Affiliates and Associated Physician Practices is amultiple site organization consisting of ambulatory clinics and hospital sitesin [place], [place], [place] and [place]. This disclosure is being madepursuant to the Care Everywhere program and may not contain all information available regarding this patient. 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 Gender Identity Not on file Sexual Orientation [...] 08/21/2021, OB-RHOGAM INJECTION 04/29/2025 COVID-19 VACCINE ( season) 2025 01/27/2021, 12/30/2020 INFLUENZA VACCINE (#1) 2025 , 08/05/2023, 08/04/2022, Additional history exists OB-GROUP B STREP SCREEN 06/17/2025 ZOSTER VACCINE [...] on patient's age to complete this topic Respiratory Syncytial Virus (RSV) Vaccine Pt: or over 60 yrs (No Doses Required) Completed Procedures Procedure Name Priority Date/Time Associated Diagnosis Comments SONOGRAM - COMPLETE Routine 05/28/2025 3 :21 PM CDT History of labor, current , second trimester (HCC) History of PROM (premature rupture of membranes), currently , second trimester (HCC) 32 weeks gestation of (HCC) Encounter for ultrasound to assess growth ([facility]) from Last 3 Months Results * Sonogram - Complete (05/28/2025 3:21 PM CDT) Linked Results Indication ======== Encounter for ultrasound to assess growth History ====== OB History 2. Para 1 [id number] 1. live 2021. Gest. age 36 w [...] 4 lb 12 oz EFW by Hadlock ([id number]) overall normal range, but the AC is [...] Z36.89: Encounter for other specified screening Procedures 90993: US Preg Uterus Follow Up [employer] PACS Anatomical Region Laterality Modality Other 05/28/2025 3:21 PM CDT Lencho GREWAL ORDERABLES Edited Result - Final from Last 3 Months Insurance [facility] MEDICAID - OUT OF STATE [place] MED[place] [facility] CIG SELF PAY NO INSURANCE Member Subscriber Plan / Payer (Ef fective for All Dates) Name:Bernadette Myles Member ID:Not on file Relation to Subscriber:Not on file Name:BERNADETTE MYLES Subscriber ID:Not on file (Home) Address: [address] [place] [address] [place] [id number] Payer ID:Not on file Group ID:Not on file Type:Self Pay Address: [place], [place] Care Teams Hat Lacer Relationship Specialty Start Date End Date Alfredo Treviño MD [address] [facility] [address] [place] [id number] PCP - General 08/19/22
--- OUTSIDE RECORDS SUMMARY | 2025-07-17 17:36 | XMS_ITS | Encounter Summary ---
Author Organization [facility] - [facility] Address [facility] [place] [address] Care Team Providers Care Shrimp Header Name Role Phone Natalia Price MD Primary Care Provider [phone] Encounter Details Date Type Department Care Team (Latest Contact Info) Description 08/18/2022 Gainsighthart Message Enc [facility] Multispecialty Care - [place] [address] [place] [address] [address] [place] [address] [place] [address] [place] [address] [address] [place] [address] Congratulations! Social History Tobacco Use [...] Sex Assigned at Female 10/23/2024 12:54 PM TANK OFFICER Legal Sex Female 4:27 PM CDT Gender [...] st Contact Info) Description 09/18/2025 8:00 AM TANK OFFICER Office Visit [facility] Mult[facility]pec[facility]ty Care [place] [address] [address] [place] [address] Natalia Price MD [address] [place] [address] documented as of this encounter Visit Diagnoses Not on filedocumented in this encounter Additional Health Concerns Infection Onset Date Last Indicated Resolved Time COVID-19 Rule Out 01/11/2024 01/11/2024 01/11/2024 2:45 PM CDT Assessment Noted Time PHQ-9 Depression Total Score: 4 10/21/19 22 11:21 AM TANK OFFICER documented as of this encounter Care Teams Shrimp Header Relationship Specialty Start Date End Date Natalai Price MD [address] [place] [address] PCP - General INTERNAL MEDICINE 07/24/21 documented as of this encounter
[2025-07-17] MEDS: LACTATED RINGERS 1,000 ML 75 ML IV CONT (18:34)
[2025-07-17] MEDS: MAGNESIUM SULF 4 GM/WATER100ML 4 GM/100 ML BAG IVPB (18:36)
[2025-07-17] MEDS: MAGNESIUM SULF 20GM/WATER500ML 500 ML 50 MG IV CONT (19:29)
--- NOTE | 2025-07-17 19:45 | PC.NURSE ---
Called Dr. Aviles, update on severe blood pressures. Orders received for procardia protocol, labetalol 200 mg BID, and tylenol 1000 mg and ibuprofen 600 mg as needed for headache.
--- NOTE | 2025-07-17 20:51 | PC.NURSE ---
Called Dr. Aviles, update on blood pressure. Orders received for vital signs every two hours while awake and four hours while sleeping.
[2025-07-17] MEDS: LABETALOL HCL 100 MG TABLET 200 MG PO (21:06)
[2025-07-17] MEDS: ACETAMINOPHEN 500 MG TABLET 1000 MG PO (22:29)
[2025-07-18] VITALS (197 sets, daily range): BP systolic 119–155; BP diastolic 60–85; PULSE 70–101; RESP 16–18; TEMP 36.4–37.1; O2SAT 87–100
[2025-07-18] MEDS: IBUPROFEN 600 MG TABLET PO ×2 (03:35→20:07)
[2025-07-18] MEDS: MAGNESIUM SULF 20GM/WATER500ML 500 ML 50 MG IV CONT (05:19)
--- NOTE | 2025-07-18 07:26 | P.HP_ITS ---
H&P: HPI History of Present Illness Date/Time: 07/18/25 07:26 Chief Complaint: Headache and increased blood pressure Narrative: She presented with complaints of increasing headaches and also had scotomata. Blood pressures had increased at home to 170s, they were 140/90s. She was taking her Labetolol. Blood pressures on assessment were high, several in severe range. PIH labs normal. [facility] Past Medical History Medical History Depression Anxiety Surgical History Surgical History S/P tonsillectomy Family History Family History Mother Breast cancer Father Hypertension Social History Social History Smoking status: Never smoker Second hand tobacco smoke exposure: No Substance use: never Lack of Transportation: No Lack of Food: Never True Current Housing: I Have Housing Concerned About Future Housing: No Difficulty Paying Gas/Electric Bills: No Difficulty Paying for Meds: No Currently Unemployed: No Education: Bachelor's Degree Difficulty w/ Childcare or Family Care: No Spiritual care concerns: No Meds Home Medications and Allergies Home Medications ?Medication ?Instructions ?Recorded ?Confirmed ?Type sertraline 50 mg tablet (Zoloft) 100 mg (2 x 50 mg) PO DAILY 90 08/18/22 07/17/25 Rx days #90 tabs vitamins 30 30 mg iron-10 cap PO 01/30/25 History mg iron-folic acid 1 mg-om3 capsule Labetolol 100 mg PO Q12H #30 tabs 1005/2707/17/25 Rx ibuprofen 600 mg tablet 600 mg PO Q6H PRN Cramping # 20 tabs 07/10/25 07/17/25 Rx Allergies Allergy/AdvReac Type Severity Reaction Status Date / Time Sulfa (Sulfonamide Allergy Mild Rash Verified 07/17/25 16:42 Antibiotics) Vital Signs Vital Signs - 24 hr 07/17/25 16:10 07/17/25 16:11 07/17/25 16:15 Temperature Pulse Rate 64 64 Respiratory Rate Blood Pressure 166/80 H 161/82 H Blood Pressure [Left Arm] Pulse Oximetry 98 97 07/17/25 16:20 07/17/25 16:25 07/17/25 16:28 Temperature Pulse Rate Respiratory Rate Blood Pressure Blood Pressure [Left Arm] Pulse Oximetry 97 98 98 07/17/25 16:30 07/17/25 16:33 07/17/25 16:35 Temperature Pulse Rate 66 71 Respiratory Rate Blood Pressure 156/85 H Blood Pressure [Left Arm] 166/80 H Pulse Oximetry 96 07/17/25 16:38 07/17/25 16:43 07/17/25 16:45 Temperature Pulse Rate 66 Respiratory Rate Blood Pressure 162/92 H Blood Pressure [Left Arm] Pulse Oximetry 99 94 07/17/25 16:48 07/17/25 16:53 07/17/25 16:58 Temperature Pulse Rate Respiratory Rate Blood Pressure Blood Pressure [Left Arm] Pulse Oximetry 97 97 100 07/17/25 17:00 07/17/25 17:03 07/17/25 17:08 Temperature Pulse Rate 64 Respiratory Rate Blood Pressure 153/91 H Blood Pressure [Left Arm] Pulse Oximetry 98 95 07/17/25 17:13 07/17/25 17:15 07/17/25 17:18 Temperature Pulse Rate 63 Respiratory Rate Blood Pressure 168/90 H Blood Pressure [Left Arm] Pulse Oximetry 97 97 07/17/25 17:23 07/17/25 17:28 07/17/25 17:30 Temperature Pulse Rate 63 Respiratory Rate Blood Pressure 178/95 H Blood Pressure [Left Arm] Pulse Oximetry 99 96 07/17/25 17:33 07/17/25 17:38 07/17/25 17:43 Temperature Pulse Rate Respiratory Rate Blood Pressure Blood Pressure [Left Arm] Pulse Oximetry 97 97 98 07/17/25 17:45 07/17/25 17:48 07/17/25 17:53 Temperature Pulse Rate 63 Respiratory Rate Blood Pressure 170/87 H Blood Pressure [Left Arm] Pulse Oximetry 95 99 07/17/25 18:14 07/17/25 18:15 07/17/25 18:19 Temperature Pulse Rate 61 Respiratory Rate Blood Pressure 172/89 H Blood Pressure [Left Arm] Pulse Oximetry 94 96 07/17/25 18:24 07/17/25 18:29 07/17/25 18:30 Temperature Pulse Rate 62 Respiratory Rate Blood Pressure 174/87 H Blood Pressure [Left Arm] Pulse Oximetry 96 95 07/17/25 18:34 07/17/25 18:35 07/17/25 18:36 Temperature 98.7 F Pulse Rate 63 Respiratory Rate 18 Blood Pressure 174/87 H Blood Pressure [Left Arm] Pulse Oximetry 96 97 97 07/17/25 18:40 07/17/25 18:45 07/17/25 18:50 Temperature Pulse Rate 62 Respiratory Rate Blood Pressure 162/83 H Blood Pressure [Left Arm] Pulse Oximetry 97 94 95 07/17/25 18:55 07/17/25 19:00 07/17/25 19:05 Temperature Pulse Rate 64 Respiratory Rate Blood Pressure 160/84 H Blood Pressure [Left Arm] Pulse Oximetry 95 95 95 07/17/25 19:10 07/17/25 19:15 07/17/25 19:20 Temperature Pulse Rate 63 Respiratory Rate Blood Pressure 159/84 H Blood Pressure [Left Arm] Pulse Oximetry 97 97 95 07/17/25 19:25 07/17/25 19:29 07/17/25 19:30 Temperature 98.2 F Pulse Rate 62 62 Respiratory Rate 18 Blood Pressure 164/86 H 164/86 H Blood Pressure [Left Arm] Pulse Oximetry 95 97 97 07/17/25 19:35 07/17/25 19:40 07/17/25 19:45 Temperature Pulse Rate 61 Respiratory Rate Blood Pressure 157/86 H Blood Pressure [Left Arm] Pulse Oximetry 95 95 98 07/17/25 19:50 07/17/25 19:55 07/17/25 20:00 Temperature Pulse Rate 77 Respiratory Rate Blood Pressure 162/90 H Blood Pressure [Left Arm] Pulse Oximetry 97 97 98 07/17/25 20:05 07/17/25 20:10 07/17/25 20:15 Temperature Pulse Rate 67 Respiratory Rate Blood Pressure 149/80 H Blood Pressure [Left Arm] Pulse Oximetry 97 97 99 07/17/25 20:20 07/17/25 20:23 07/17/25 20:25 Temperature Pulse Rate 83 Respiratory Rate Blood Pressure 154/81 H Blood Pressure [Left Arm] Pulse Oximetry 97 96 07/17/25 20:30 07/17/25 20:35 07/17/25 20:40 Temperature Pulse Rate 89 Respiratory Rate Blood Pressure 154/78 H Blood Pressure [Left Arm] Pulse Oximetry 99 97 96 07/17/25 20:45 07/17/25 20:50 07/17/25 20:55 Temperature Pulse Rate 84 Respiratory Rate Blood Pressure 149/73 H Blood Pressure [Left Arm] Pulse Oximetry 98 97 96 07/17/25 21:00 07/17/25 21:00 07/17/25 21:05 Temperature Pulse Rate 81 82 Respiratory Rate 18 Blood Pressure 147/79 H 147/79 H Blood Pressure [Left Arm] Pulse Oximetry 98 98 100 07/17/25 21:06 07/17/25 21:13 07/17/25 21:18 Temperature Pulse Rate 86 Respiratory Rate Blood Pressure Blood Pressure [Left Arm] Pulse Oximetry 100 98 07/17/25 21:23 07/17/25 21:28 07/17/25 21:33 Temperature Pulse Rate Respiratory Rate Blood Pressure Blood Pressure [Left Arm] Pulse Oximetry 96 96 96 07/17/25 21:38 07/17/25 21:43 07/17/25 21:48 Temperature Pulse Rate Respiratory Rate Blood Pressure Blood Pressure [Left Arm] Pulse Oximetry 96 95 98 07/17/25 21:53 07/17/25 21:58 07/17/25 22:03 Temperature Pulse Rate Respiratory Rate Blood Pressure Blood Pressure [Left Arm] Pulse Oximetry 98 97 99 07/17/25 22:08 07/17/25 22:13 07/17/25 22:18 Temperature Pulse Rate Respiratory Rate Blood Pressure Blood Pressure [Left Arm] Pulse Oximetry 98 97 98 07/17/25 22:23 07/17/25 22:23 07/17/25 22:28 Temperature Pulse Rate Respiratory Rate Blood Pressure Blood Pressure [Left Arm] Pulse Oximetry 96 94 99 07/17/25 22:33 07/17/25 22:38 07/17/25 22:43 Temperature Pulse Rate Respiratory Rate Blood Pressure Blood Pressure [Left Arm] Pulse Oximetry 96 96 95 07/17/25 22:48 07/17/25 22:53 07/17/25 22:58 Temperature Pulse Rate Respiratory Rate Blood Pressure Blood Pressure [Left Arm] Pulse Oximetry 96 97 95 07/17/25 23:03 07/17/25 23:08 07/17/25 23:13 Temperature Pulse Rate Respiratory Rate Blood Pressure Blood Pressure [Left Arm] Pulse Oximetry 95 96 98 07/17/25 23:14 07/17/25 23:14 07/17/25 23:18 Temperature 97.1 F L Pulse Rate 75 80 Respiratory Rate 18 Blood Pressure 129/67 129/67 Blood Pressure [Left Arm] Pulse Oximetry 98 94 07/17/25 23:23 07/17/25 23:28 07/17/25 23:33 Temperature Pulse Rate Respiratory Rate Blood Pressure Blood Pressure [Left Arm] Pulse Oximetry 94 95 96 07/17/25 23:38 07/17/25 23:43 07/17/25 23:48 Temperature Pulse Rate Respiratory Rate Blood Pressure Blood Pressure [Left Arm] Pulse Oximetry 96 95 95 07/17/25 23:53 07/17/25 23:58 07/18/25 00:03 Temperature Pulse Rate Respiratory Rate Blood Pressure Blood Pressure [Left Arm] Pulse Oximetry 94 94 95 07/18/25 00:08 07/18/25 00:13 07/18/25 00:18 Temperature Pulse Rate Respiratory Rate Blood Pressure Blood Pressure [Left Arm] Pulse Oximetry 94 95 94 07/18/25 00:23 07/18/25 00:28 07/18/25 00:33 Temperature Pulse Rate Respiratory Rate Blood Pressure Blood Pressure [Left Arm] Pulse Oximetry 94 94 95 07/18/25 00:38 07/18/25 00:43 07/18/25 00:48 Temperature Pulse Rate Respiratory Rate Blood Pressure Blood Pressure [Left Arm] Pulse Oximetry 96 94 93 07/18/25 00:53 07/18/25 00:58 07/18/25 01:03 Temperature Pulse Rate Respiratory Rate Blood Pressure Blood Pressure [Left Arm] Pulse Oximetry 94 96 95 07/18/25 01:08 07/18/25 01:13 07/18/25 01:18 Temperature Pulse Rate Respiratory Rate Blood Pressure Blood Pressure [Left Arm] Pulse Oximetry 96 91 91 07/18/25 01:23 07/18/25 01:28 07/18/25 01:33 Temperature Pulse Rate Respiratory Rate Blood Pressure Blood Pressure [Left Arm] Pulse Oximetry 87 L 92 91 07/18/25 01:38 07/18/25 01:43 07/18/25 01:48 Temperature Pulse Rate Respiratory Rate Blood Pressure Blood Pressure [Left Arm] Pulse Oximetry 91 91 91 07/18/25 01:53 07/18/25 01:58 07/18/25 02:03 Temperature Pulse Rate Respiratory Rate Blood Pressure Blood Pressure [Left Arm] Pulse Oximetry 90 92 93 07/18/25 02:08 07/18/25 02:13 07/18/25 02:18 Temperature Pulse Rate Respiratory Rate Blood Pressure Blood Pressure [Left Arm] Pulse Oximetry 95 90 93 07/18/25 02:23 07/18/25 02:28 07/18/25 02:33 Temperature Pulse Rate Respiratory Rate Blood Pressure Blood Pressure [Left Arm] Pulse Oximetry 94 95 96 07/18/25 02:38 07/18/25 02:43 07/18/25 02:48 Temperature Pulse Rate Respiratory Rate Blood Pressure Blood Pressure [Left Arm] Pulse Oximetry 95 95 95 07/18/25 02:53 07/18/25 02:58 07/18/25 03:03 Temperature Pulse Rate Respiratory Rate Blood Pressure Blood Pressure [Left Arm] Pulse Oximetry 95 95 95 07/18/25 03:08 07/18/25 03:13 07/18/25 03:18 Temperature Pulse Rate Respiratory Rate Blood Pressure Blood Pressure [Left Arm] Pulse Oximetry 96 96 95 07/18/25 03:23 07/18/25 03:28 07/18/25 03:30 Temperature Pulse Rate 84 Respiratory Rate Blood Pressure 125/68 Blood Pressure [Left Arm] Pulse Oximetry 95 96 07/18/25 03:30 07/18/25 03:33 07/18/25 03:38 Temperature 98.7 F Pulse Rate 89 Respiratory Rate 18 Blood Pressure 125/68 Blood Pressure [Left Arm] Pulse Oximetry 96 95 96 07/18/25 03:43 07/18/25 03:48 07/18/25 03:53 Temperature Pulse Rate Respiratory Rate Blood Pressure Blood Pressure [Left Arm] Pulse Oximetry 96 95 95 07/18/25 03:58 07/18/25 04:03 07/18/25 04:08 Temperature Pulse Rate Respiratory Rate Blood Pressure Blood Pressure [Left Arm] Pulse Oximetry 96 94 94 07/18/25 04:13 07/18/25 04:18 07/18/25 04:23 Temperature Pulse Rate Respiratory Rate Blood Pressure Blood Pressure [Left Arm] Pulse Oximetry 93 94 93 07/18/25 04:28 07/18/25 04:33 07/18/25 04:38 Temperature Pulse Rate Respiratory Rate Blood Pressure Blood Pressure [Left Arm] Pulse Oximetry 93 93 99 07/18/25 04:54 07/18/25 04:59 07/18/25 05:04 Temperature Pulse Rate Respiratory Rate Blood Pressure Blood Pressure [Left Arm] Pulse Oximetry 97 96 96 07/18/25 05:09 07/18/25 05:14 07/18/25 05:19 Temperature Pulse Rate Respiratory Rate Blood Pressure Blood Pressure [Left Arm] Pulse Oximetry 96 95 97 07/18/25 05:21 07/18/25 05:21 07/18/25 05:24 Temperature 98.4 F 98.4 F Pulse Rate 75 78 Respiratory Rate 18 Blood Pressure 119/60 119/60 Blood Pressure [Left Arm] Pulse Oximetry 97 99 07/18/25 05:29 07/18/25 05:34 07/18/25 05:39 Temperature Pulse Rate Respiratory Rate Blood Pressure Blood Pressure [Left Arm] Pulse Oximetry 97 96 96 07/18/25 05:44 07/18/25 05:49 07/18/25 05:54 Temperature Pulse Rate Respiratory Rate Blood Pressure Blood Pressure [Left Arm] Pulse Oximetry 96 95 96 07/18/25 05:59 07/18/25 06:04 07/18/25 06:09 Temperature Pulse Rate Respiratory Rate Blood Pressure Blood Pressure [Left Arm] Pulse Oximetry 95 96 96 07/18/25 06:14 07/18/25 06:19 07/18/25 06:24 Temperature Pulse Rate Respiratory Rate Blood Pressure Blood Pressure [Left Arm] Pulse Oximetry 93 98 97 07/18/25 06:29 07/18/25 06:34 07/18/25 06:39 Temperature Pulse Rate Respiratory Rate Blood Pressure Blood Pressure [Left Arm] Pulse Oximetry 94 96 95 07/18/25 06:44 07/18/25 06:49 07/18/25 06:54 Temperature Pulse Rate Respiratory Rate Blood Pressure Blood Pressure [Left Arm] Pulse Oximetry 95 96 96 07/18/25 06:59 07/18/25 07:04 07/18/25 07:09 Temperature Pulse Rate Respiratory Rate Blood Pressure Blood Pressure [Left Arm] Pulse Oximetry 97 96 96 07/18/25 07:14 07/18/25 07:19 07/18/25 07:20 Temperature Pulse Rate 87 Respiratory Rate Blood Pressure 119/68 Blood Pressure [Left Arm] Pulse Oximetry 96 97 07/18/25 07:20 07/18/25 07:24 Temperature 98.7 F Pulse Rate 76 Respiratory Rate 16 Blood Pressure 119/68 Blood Pressure [Left Arm] Pulse Oximetry 97 97 H&P: Results Labs Labs: Short CBC 07/17/25 Range/Units 17:05 WBC 8.6 (4.5-10.0) K/mm3 Hgb 11.2 L (12.0-15.0) g/dL Hct 34.2 L (37.0-47.0) % Plt Count 243 (150-375) k/mm3 BMP 07/17/25 16:32 Sodium 136 L Potassium 3.6 Chloride 104 Carbon Dioxide 24 BUN 17 Creatinine 0.82 Glucose 110 Calcium 9.4 Liver Function 07/17/25 Range/Units 16:32 Total Bilirubin 0.3 (0.2-1.3) mg/dL AST 28 (14-36) U/L ALT 27 (6-35) U/L Alkaline Phosphatase 69 (38-126) U/L Albumin 3.7 (3.5-5.1) g/dL Assessment and Plan Assessment and plan (1) hypertension: Code(s): O16.5 - Unspecified maternal hypertension, complicating the puerperium Status: Acute Assessment and Plan: Severe range blood pressures. Admit. Magnesium. Adjust antihypertensive medication.
[2025-07-18] MEDS: LACTATED RINGERS 1,000 ML 75 ML IV CONT (07:54)
[2025-07-18] MEDS: LABETALOL HCL 100 MG TABLET 200 MG PO ×2 (08:49→20:57)
[2025-07-18] MEDS: ACETAMINOPHEN 500 MG TABLET 1000 MG PO ×2 (10:04→18:00)
--- NOTE | 2025-07-18 15:15 | PC.NURSE ---
Called Dr. Robles with pt update. BP 148/85. pt states mild headache of 2 on 1-10 scale. Urine output appropriate. May D/C Magnesium Sulfate.
[2025-07-19] VITALS (8 sets, daily range): BP systolic 143–149; BP diastolic 81–91; PULSE 70–79; RESP 18; TEMP 36.5–37.6; O2SAT 97
--- NOTE | 2025-07-19 00:50 | PC.NURSE ---
late entry 07/18 @[address] Robles and made aware of BP 140s-150s/70s-80s. NO new order at this time.
--- NOTE | 2025-07-19 08:53 | P.PNOB_ITS ---
OB - PN: Subj Subjective Date/time seen: 07/19/25 08:53 Narrative: Headache resolved. No epigastric or RUQ pain. Magnesium was stopped last evening. She would like to go home. OB - PN: Obj Data Labs 07/17/25 17:05 07/17/25 16:32 OB - PN A/P Assessment and Plan (1) Preeclampsia in period: Code(s): O14.95 - Unspecified pre-eclampsia, complicating the puerperium Status: Acute Assessment and Plan: A: preeclampsia, clinically improved. P: Home to continue labetalol 200 mg po bid. We reviewed instructions and precautions. F/u next week in office for bp check. Plan Comments: A: PPD#2, doing well. P: Home to f/u 6 weeks. Time Spent With Patient Time: Total time spent is greater than 50% in coordination of care (as documented) at patient's floor/unit and/or counseling patient: Exam 2 Psych: Other: AVSS (BP mildly elevated, but stable 140/90s) ABD soft, nontender, fundus firm. No hepatosplenomegaly. EXT nontender, no edema NEURO: DTR 3+/4 and symmetric in lower extremeties bilaterally
[2025-07-19] MEDS: LABETALOL HCL 100 MG TABLET 200 MG PO (09:03)
--- NOTE | 2025-08-05 17:19 | PM.OBTRLD ---
OB - Triage/Final Diagnosis Visit Information Comments/Additional reasons for admission: I have assessed the risk for this patient, Jeannine Myles, and determined that she would benefit from observation care. Evaluation Laboratory results: Laboratory Tests 07/17/25 07/17/25 16:32 17:05 WBC 8.6 RBC 3.80 L Hgb 11.2 L Hct 34.2 L MCV 90.0 MCH 29.5 MCHC 32.7 RDW 13.1 Plt Count 243 MPV 8.8 Immature Gran % (Auto) 0.5 Neut % (Auto) 68.2 Lymph % (Auto) 22.7 Braxton % (Auto) 5.3 Eos % (Auto) 2.8 Baso % (Auto) 0.5 Lymph # (Auto) 1.94 Braxton # (Auto) 0.5 Eos # (Auto) 0.2 Baso # (Auto) 0.0 Abs Immat Gran (auto) 0.04 H Absolute Neuts (auto) 5.8 Absolute Nucleated RBC 0.000 Nucleated RBC % 0.0 Sodium 136 L Potassium 3.6 Chloride 104 Carbon Dioxide 24 Anion Gap 8 BUN 17 Creatinine 0.82 Estim Creat Clear Calc Not Reportable Estimated GFR > 60 Glucose 110 Uric Acid 5.9 Calcium 9.4 Total Bilirubin 0.3 AST 28 ALT 27 Alkaline Phosphatase 69 Total Protein 6.6 Albumin 3.7 Final Diagnosis (1) Elevated blood pressure affecting , antepartum: Code(s): O16.9 - Unspecified maternal hypertension, unspecified trimester Status: Acute
--- NOTE | 2025-08-05 17:20 | PM.OBTRLD ---
OB - Triage/Final Diagnosis Visit Information Comments/Additional reasons for admission: I have assessed the risk for this patient, Jeannine Myles, and determined that she would benefit from observation care. Evaluation Laboratory results: Laboratory Tests 07/17/25 07/17/25 16:32 17:05 WBC 8.6 RBC 3.80 L Hgb 11.2 L Hct 34.2 L MCV 90.0 MCH 29.5 MCHC 32.7 RDW 13.1 Plt Count 243 MPV 8.8 Immature Gran % (Auto) 0.5 Neut % (Auto) 68.2 Lymph % (Auto) 22.7 Screven % (Auto) 5.3 Eos % (Auto) 2.8 Baso % (Auto) 0.5 Lymph # (Auto) 1.94 Screven # (Auto) 0.5 Eos # (Auto) 0.2 Baso # (Auto) 0.0 Abs Immat Gran (auto) 0.04 H Absolute Neuts (auto) 5.8 Absolute Nucleated RBC 0.000 Nucleated RBC % 0.0 Sodium 136 L Potassium 3.6 Chloride 104 Carbon Dioxide 24 Anion Gap 8 BUN 17 Creatinine 0.82 Estim Creat Clear Calc Not Reportable Estimated GFR > 60 Glucose 110 Uric Acid 5.9 Calcium 9.4 Total Bilirubin 0.3 AST 28 ALT 27 Alkaline Phosphatase 69 Total Protein 6.6 Albumin 3.7 Final Diagnosis (1) hypertension: Code(s): O16.5 - Unspecified maternal hypertension, complicating the puerperium Status: Acute
== END 2025-07-19 09:45 | disposition home or self-care (01) ==
LOC: ANHOBOP 07-22 08:54 → ANHOBPP 07-22 08:54
PROVIDERS: Admitting Provider Obstetrics & Gynecology; Visit Provider Obstetrics & Gynecology
DX: O14.95 Unspecified pre-eclampsia, complicating the puerperium (principal); O16.5 Unspecified maternal hypertension, complicating the puerperium; F41.8 Other specified anxiety disorders; Z79.1 Long term (current) use of non-steroidal anti-inflammatories (NSAID); Z79.899 Other long term (current) drug therapy; Z90.89 Acquired absence of other organs; Z80.3 Family history of malignant neoplasm of breast; Z82.49 Family history of ischemic heart disease and other diseases of the circulatory system
CPT/HCPCS: 36415; 80053; 84550; 85025; 96365; 96366; 99199; A9270; G0378; G0379; J3475; J7120

== ENCOUNTER 2025-07-22 17:01 | Observation (INO) | payer OTHER, SELFPAY ==
[2025-07-22] VITALS (99 sets, daily range): BP systolic 136–175; BP diastolic 73–96; PULSE 51–152; RESP 16–18; TEMP 36.3; O2SAT 82–100
[2025-07-22 16:34] LABS: Hematocrit 36.6 % (37.0-47.0); Hemoglobin 11.8 g/dL (12.0-15.0); Immature Granulocyte Percent A 0.4 % (0-0.5); Lymphocytes Absolute Auto 1.77 K/mm3 (0.9-3.2); Mean Corpuscular HGB Conc 32.2 g/dl (32-36); Mean Corpuscular Hemoglobin 28.9 pg (26-34); Mean Corpuscular Volume 89.7 fl (80-100); Nucleated Red Blood Cells Absolute Auto 0.000 K/mm3 (0.0-0.012); Nucleated Red Blood Cells Perc 0.0 % (0.0-0.2); Platelet Count Result 245 k/mm3 (150-375); Red Blood Count 4.08 M/mm3 (4.2-5.4); White Blood Count 7.6 K/mm3 (4.5-10.0)
[2025-07-22 16:46] LABS: Alanine Aminotransferase 28 U/L (6-35); Albumin Level 3.9 g/dL (3.5-5.1); Alkaline Phosphatase 63 U/L (38-126); Anion Gap 6 mmol/L (4-12); Aspartate Amino Transferase 29 U/L (14-36); Bilirubin,Total 0.3 mg/dL (0.2-1.3); Blood Urea Nitrogen 26 mg/dL (7-17); Calcium 9.2 mg/dL (8.4-10.2); Carbon Dioxide 25 mmol/L (22-30); Chloride 106 mmol/L (98-107); Estimated Glomerular Filt Rate 59; Glucose 106 mg/dL (65-110); Potassium 4.1 mmol/L (3.4-5.0); Sodium 137 mmol/L (137-145); Total Protein 6.7 g/dL (6.3-8.2); Uric Acid 5.9 mg/dL (2.5-7.5)
[2025-07-22] MEDS: LACTATED RINGERS 1,000 ML 75 ML IV CONT (17:19)
[2025-07-22] MEDS: MAGNESIUM SULF 4 GM/WATER100ML 4 GM/100 ML BAG IVPB (17:23)
[2025-07-22] MEDS: MAGNESIUM SULF 20GM/WATER500ML 500 ML 50 MG IV CONT (17:51)
--- OUTSIDE RECORDS SUMMARY | 2025-07-22 18:35 | XMS_ITS | Clinical Summary ---
Author Organization [facility] Address [address] [place] [address] Care Team Providers Care Surgical Appliance Fitter Name Role Phone Natalia Price MD Primary Care Provider [phone] Allergies Active Allergy Reactions Criticality Noted Date [...] Sex Assigned at Female 10/23/2024 12:54 PM CUSTOMER SOLUTIONS REPRESENTATIVE Legal Sex Female 4:27 PM CDT Gender [...] st Contact Info) Description 09/18/2025 8:00 AM CUSTOMER SOLUTIONS REPRESENTATIVE Office Visit [facility] Multispecialty Care - [place] [address] [address] [place] [address] [place] [address] [place] [address] [address] [place] [address] Health Maintenance Due Date Last Done Comments [...] 08/15/2007 Hepatitis C Completed 07/24/2021 PHQ-2 (Physician [place]) Completed 12/18/2024 Meningococcal B Vaccine Aged Out [...] VE NON-REACT MANJULA 07/24/2021 9:36 PM CDT [facility] Comment: ANTIBODIES TO HCV NOT DETECTED. DOES NOT EXCLUDE THE POSSIBILITY OF EXPOSURE TO HCV. 07/24/2021 12:4 0 PM CDT Natalia Price MD LABORATORY Final Result [facility] [address] [place] [address], [id number] * OUTSIDE CYTOPATH CERV/VAG INTERPRET (PAP) (01/01/2021) 01/01/2021 Narrative 01/01/2021 Ordered by an unspecified provider. us Documents Scanned SCANNING Final Result from Last 3 Months or Most Recently Relevant to Health Maintenance Insurance CIG Care Teams Surgical Appliance Fitter Relationship Specialty Start Date End Date Natalia Price MD [address] [address] PCP - General INTERNAL MEDICINE 07/24/21
--- OUTSIDE RECORDS SUMMARY | 2025-07-22 18:35 | XMS_ITS | Clinical Summary ---
Author Organization [facility] Address [address] [place] [address] Care Team Providers Care Seasonal Greenery Bundler Name Role Phone Alfredo Treviño MD Primary Care Provider [phone] Source Comments [facility],non-owned Affiliates and Associated Physician Practices is amultiple site organization consisting of ambulatory clinics and hospital sitesin [place] and [place]. This disclosure is being madepursuant to the Care Everywhere program and may not contain all information available regarding this patient. Last updated 18.[facility] Allergies Active Allergy Reactions Criticality [...] - 05/28/2025 11:59 PM CDT Hospital Encounter [facility]'s Health Maternal & Care [address] [place] [address] Brandee Enrique MD Discharge Disposition: [...] on file Legal Sex Female 11:57 AM PIPE CHANGER Gender Identity Not on file Sexual Orientation [...] (HCC) Encounter for ultrasound to assess growth ([facility]) from Last 3 Months Results * Sonogram - Complete (05/28/2025 3:21 PM CDT) Linked Results Indication ======== Encounter for ultrasound to assess growth History ====== OB History 2. Para 1 [id number] 1. live 2021. Gest. age 38 w [...] 4 lb 12 oz EFW by [facility]lock ([id number]) overall normal range, but the AC is [...] Z36.89: Encounter for other specified screening Procedures [id number]: US Preg Uterus Follow Up [employer] PACS Anatomical Region Laterality Modality Other 05/28/2025 3:21 PM CDT Lencho GREWAL ORDERABLES Edited Result - Final from Last 3 Months Insurance [facility] MEDICAID - OUT OF STATE [place] [facility] CIG SELF PAY NO INSURANCE Member Subscriber Plan / Payer (Ef fective for All Dates) Name:Bernadette Myles Member ID:Not on file Relation to Subscriber:Not on file Name:BERNADETTE MYLES Subscriber ID:Not on file (Home) Address: [address] [place] [address] [place] [id number] Payer ID:Not on file Group ID:Not on file Type:Self Pay Address: [place], [place] Care Teams Seasonal Greenery Bundler Relationship Specialty Start Date End Date Alfredo Treviño MD [address] [facility] [address] [place] [address] PCP - General 08/19/22
--- OUTSIDE RECORDS SUMMARY | 2025-07-22 18:35 | XMS_ITS | Clinical Summary ---
Author Organization [facility] Address [address] [place] [address] Phone Care Team Providers Care Agency Development Manager Name Role Phone Unavailable Primary Care Provider [...] HPV VACCINES Completed 02/15/2008, 10/03, 08/15/2007 Insurance [facility]
--- OUTSIDE RECORDS SUMMARY | 2025-07-22 18:35 | XMS_ITS | Encounter Summary ---
Author Organization [facility] Address [facility] [place] [address] Care Team Providers Care [employer] Lieutenant Name Role Phone Natalia Price MD Primary Care Provider [phone] Encounter Details Date Type Department Care Team (Latest Contact Info) Description 08/18/2022 Sendah Directhart Message Enc [facility] Multispecialty Care - [place] [address] [place] [address] [address] [place] [address] [place] [address] [place] [address] [address] [place] [address] Congratulations! Social History Tobacco Use [...] Sex Assigned at Female 10/23/2024 12:54 PM PRACTICE LEAD Legal Sex Female 4:27 PM CDT Gender [...] st Contact Info) Description 09/18/2025 8:00 AM PRACTICE LEAD Office Visit [facility] Multispecialty Care - [place] [address] [address] [place] [address] Natalia Price MD [address] [place] [id number] documented as of this encounter Visit Diagnoses Not on filedocumented in this encounter Additional Health Concerns Infection Onset Date Last Indicated Resolved Time COVID-19 Rule Out 01/11/2024 01/11/2024 01/11/2024 2:45 PM CDT Assessment Noted Time PHQ-9 Depression Total Score: 4 10/21/19 22 11:21 AM PRACTICE LEAD documented as of this encounter Care Teams [employer] Lieutenant Relationship Specialty Start Date End Date Natalia Price MD [address] [place] [address] PCP - General INTERNAL MEDICINE 07/24/21 documented as of this encounter
--- NOTE | 2025-07-22 19:37 | PC.NURSE ---
This RN called Dr. Girard at 1920. Dr. Girard updated on patient status, blood pressures, labs, and medications. New orders received. Patient updated on medications, orders, and voiced understanding.
[2025-07-22] MEDS: LABETALOL HCL 100 MG TABLET 200 MG PO (20:57)
[2025-07-23] VITALS (140 sets, daily range): BP systolic 130–153; BP diastolic 72–90; PULSE 65–100; RESP 14–18; TEMP 36.2–37.1; O2SAT 93–100
[2025-07-23] MEDS: MAGNESIUM SULF 20GM/WATER500ML 500 ML 50 MG IV CONT ×2 (03:52→14:00)
[2025-07-23] MEDS: IBUPROFEN 600 MG TABLET PO ×2 (04:04→18:12)
[2025-07-23 05:03] LABS: Hematocrit 36.4 % (37.0-47.0); Hemoglobin 11.7 g/dL (12.0-15.0); Mean Corpuscular HGB Conc 32.1 g/dl (32-36); Mean Corpuscular Hemoglobin 29.0 pg (26-34); Mean Corpuscular Volume 90.3 fl (80-100); Platelet Count Result 231 k/mm3 (150-375); Red Blood Count 4.03 M/mm3 (4.2-5.4); White Blood Count 6.8 K/mm3 (4.5-10.0)
[2025-07-23 05:32] LABS: Alanine Aminotransferase 26 U/L (6-35); Albumin Level 3.8 g/dL (3.5-5.1); Alkaline Phosphatase 70 U/L (38-126); Anion Gap 8 mmol/L (4-12); Aspartate Amino Transferase 24 U/L (14-36); Bilirubin,Total 0.2 mg/dL (0.2-1.3); Blood Urea Nitrogen 19 mg/dL (7-17); Calcium 7.2 mg/dL (8.4-10.2); Carbon Dioxide 24 mmol/L (22-30); Chloride 104 mmol/L (98-107); Estimated Glomerular Filt Rate > 60; Glucose 102 mg/dL (65-110); Potassium 3.6 mmol/L (3.4-5.0); Sodium 136 mmol/L (137-145); Total Protein 6.3 g/dL (6.3-8.2); Uric Acid 5.6 mg/dL (2.5-7.5)
[2025-07-23] MEDS: LACTATED RINGERS 1,000 ML 75 ML IV CONT (06:41)
[2025-07-23] MEDS: ACETAMINOPHEN 325 MG TABLET 650 MG PO (08:50)
[2025-07-23] MEDS: LABETALOL HCL 100 MG TABLET 200 MG PO ×2 (08:50→16:30)
[2025-07-23] MEDS: MULTIVIT/MIN/PREN/FOL AC/IRON TABLET 1 TAB PO (09:16)
--- NOTE | 2025-07-23 13:05 | PM.IMHP ---
H&P: HPI History of Present Illness Date/Time: 07/23/25 13:05 Chief Complaint: Headaches and floaters Narrative: Patient is 2 weeks status post . She was induced for gestational hypertension. She was readmitted on July 17 for hypertension severe range blood pressures no preeclampsia she received IV magnesium for 24 hours blood pressures were stable prior to discharge she states that her headache was resolved prior to discharge and she was discharged home on labetalol. She did not have a headache until 07 22. She was not taking her blood pressures at home she was taking her antihypertensive medication. She also noticed that she had floaters and a headache that was a 6/10. When she presented to Labor and delivery she did have severe range blood pressures and was started on magnesium and labetalol. Review of Systems Review of Systems: All systems reviewed & are unremarkable except as noted in HPI and below Constitutional: Constitutional: Reports no additional constitutional complaints ENT: Reports system reviewed and no additional complaints, except as documented Cardiovascular: Cardiovascular: Denies chest pain and Denies dyspnea Respiratory: Respiratory: Denies dyspnea Gastrointestinal: Gastrointestinal: Reports no additional gastrointestinal complaints Genitourinary: Genitourinary: Reports amenorrhea Musculoskeletal: Musculoskeletal: Reports no additional musculoskeletal complaints Integumentary/Breasts: Skin/Breast: Denies breast mass and Denies rash Neurologic: Denies headache(s) Psychiatric: Psychiatric: Reports no additional psychiatric complaints [facility] Past Medical History Medical History Depression Anxiety Surgical History Surgical History S/P tonsillectomy Family History Family History Mother Breast cancer Father Hypertension Social History Social History Smoking status: Never smoker Second hand tobacco smoke exposure: No Substance use: never Lack of Transportation: No Lack of Food: Never True Current Housing: I Have Housing Concerned About Future Housing: No Difficulty Paying Gas/Electric Bills: No Difficulty Paying for Meds: No Currently Unemployed: No Education: Bachelor's Degree Difficulty w/ Childcare or Family Care: No Spiritual care concerns: No Meds Home Medications and Allergies Home Medications ?Medication ?Instructions ?Recorded ?Confirmed ?Type sertraline 50 mg tablet (Zoloft) 100 mg (2 x 50 mg) PO DAILY 90 08/18/22 07/26/25 Rx days #90 tabs vitamins 30 30 mg iron-10 cap PO 01/30/25 07/26/25 History mg iron-folic acid 1 mg-om3 capsule ibuprofen 600 mg tablet 600 mg PO Q6H PRN Cramping #20 tabs 07/10/25 07/26/25 Rx labetalol 100 mg tablet 200 mg (2 x 100 mg) PO Q12HR #60 07/24/25 07/26/25 Rx tabs nifedipine 30 mg tablet,extended 60 mg (2 x 30 mg) PO QAM #30 tabs 07/24/25 07/26/25 Rx release 24 hr (Procardia XL) Allergies Allergy/AdvReac Type Severity Reaction Status Date / Time Sulfa (Sulfonamide Allergy Mild Rash Verified 08/02/25 10:26 Antibiotics) Vital Signs Vital Signs - 24 hr 07/22/25 16:30 07/22/25 16:31 07/22/25 16:46 Temperature Pulse Rate 63 63 62 Respiratory Rate Blood Pressure 175/90 H 169/89 H 175/89 H Pulse Oximetry Oxygen Delivery 07/22/25 17:01 07/22/25 17:16 07/22/25 17:23 Temperature Pulse Rate 63 69 Respiratory Rate 16 Blood Pressure 167/84 H 160/87 H Pulse Oximetry Oxygen Delivery 07/22/25 17:31 07/22/25 17:31 07/22/25 17:37 Temperature Pulse Rate 66 67 Respiratory Rate Blood Pressure 156/81 H 162/87 H Pulse Oximetry Oxygen Delivery Room Air 07/22/25 17:41 07/22/25 17:46 07/22/25 17:51 Temperature 97.4 F L Pulse Rate 67 67 Respiratory Rate 16 Blood Pressure 158/86 H Pulse Oximetry Oxygen Delivery 07/22/25 17:55 07/22/25 18:00 07/22/25 18:01 Temperature Pulse Rate 65 Respiratory Rate Blood Pressure 161/88 H Pulse Oximetry 98 97 Oxygen Delivery 07/22/25 18:05 07/22/25 18:07 07/22/25 18:10 Temperature Pulse Rate 64 66 Respiratory Rate Blood Pressure 162/89 H Pulse Oximetry 97 96 Oxygen Delivery 07/22/25 18:13 07/22/25 18:16 07/22/25 18:18 Temperature Pulse Rate 67 Respiratory Rate Blood Pressure 149/93 H Pulse Oximetry 82 L 95 Oxygen Delivery 07/22/25 18:23 07/22/25 18:25 07/22/25 18:28 Temperature Pulse Rate 68 Respiratory Rate Blood Pressure 151/96 H Pulse Oximetry 97 97 Oxygen Delivery 07/22/25 18:31 07/22/25 18:33 07/22/25 18:38 Temperature Pulse Rate 66 Respiratory Rate Blood Pressure 156/87 H Pulse Oximetry 96 96 Oxygen Delivery 07/22/25 18:43 07/22/25 18:46 07/22/25 18:48 Temperature Pulse Rate 68 Respiratory Rate Blood Pressure 142/94 H Pulse Oximetry 100 98 Oxygen Delivery 07/22/25 18:53 07/22/25 18:58 07/22/25 19:01 Temperature Pulse Rate 63 Respiratory Rate Blood Pressure 153/81 H Pulse Oximetry 97 98 Oxygen Delivery 07/22/25 19:03 07/22/25 19:08 07/22/25 19:13 Temperature Pulse Rate Respiratory Rate Blood Pressure Pulse Oximetry 97 97 98 Oxygen Delivery 07/22/25 19:16 07/22/25 19:18 07/22/25 19:23 Temperature Pulse Rate 71 Respiratory Rate Blood Pressure 153/88 H Pulse Oximetry 98 97 Oxygen Delivery 07/22/25 19:24 07/22/25 19:29 07/22/25 19:31 Temperature Pulse Rate 83 Respiratory Rate Blood Pressure 154/95 H Pulse Oximetry 92 99 Oxygen Delivery 07/22/25 19:34 07/22/25 19:39 07/22/25 19:44 Temperature Pulse Rate Respiratory Rate Blood Pressure Pulse Oximetry 99 99 97 Oxygen Delivery 07/22/25 19:45 07/22/25 19:45 07/22/25 19:45 Temperature Pulse Rate Respiratory Rate Blood Pressure Pulse Oximetry 98 98 98 Oxygen Delivery 07/22/25 19:50 07/22/25 19:55 07/22/25 20:00 Temperature Pulse Rate Respiratory Rate Blood Pressure Pulse Oximetry 98 100 97 Oxygen Delivery 07/22/25 20:05 07/22/25 20:10 07/22/25 20:15 Temperature Pulse Rate Respiratory Rate Blood Pressure Pulse Oximetry 98 100 100 Oxygen Delivery 07/22/25 20:20 07/22/25 20:25 07/22/25 20:26 Temperature Pulse Rate Respiratory Rate Blood Pressure Pulse Oximetry 99 100 99 Oxygen Delivery 07/22/25 20:31 07/22/25 20:36 07/22/25 20:41 Temperature Pulse Rate Respiratory Rate Blood Pressure Pulse Oximetry 96 96 96 Oxygen Delivery 07/22/25 20:46 07/22/25 20:51 07/22/25 20:56 Temperature Pulse Rate 74 Respiratory Rate Blood Pressure 136/73 Pulse Oximetry 95 96 Oxygen Delivery 07/22/25 20:57 07/22/25 20:57 07/22/25 20:58 Temperature Pulse Rate 72 Respiratory Rate Blood Pressure Pulse Oximetry 88 L 100 Oxygen Delivery 07/22/25 20:59 07/22/25 20:59 07/22/25 21:02 Temperature 97.3 F L Pulse Rate 76 Respiratory Rate 18 Blood Pressure 136/73 Pulse Oximetry 100 98 98 Oxygen Delivery 07/22/25 21:04 07/22/25 21:09 07/22/25 21:09 Temperature Pulse Rate Respiratory Rate Blood Pressure Pulse Oximetry 100 95 98 Oxygen Delivery 07/22/25 21:14 07/22/25 21:19 07/22/25 21:24 Temperature Pulse Rate Respiratory Rate Blood Pressure Pulse Oximetry 96 96 96 Oxygen Delivery 07/22/25 21:29 07/22/25 21:34 07/22/25 21:35 Temperature Pulse Rate Respiratory Rate Blood Pressure Pulse Oximetry 98 94 94 Oxygen Delivery 07/22/25 21:40 07/22/25 21:50 07/22/25 21:55 Temperature Pulse Rate Respiratory Rate Blood Pressure Pulse Oximetry 100 98 95 Oxygen Delivery 07/22/25 22:00 07/22/25 22:05 07/22/25 22:10 Temperature Pulse Rate Respiratory Rate Blood Pressure Pulse Oximetry 95 95 95 Oxygen Delivery 07/22/25 22:15 07/22/25 22:20 07/22/25 22:25 Temperature Pulse Rate Respiratory Rate Blood Pressure Pulse Oximetry 96 96 95 Oxygen Delivery 07/22/25 22:30 07/22/25 22:35 07/22/25 22:40 Temperature Pulse Rate Respiratory Rate Blood Pressure Pulse Oximetry 94 95 93 Oxygen Delivery 07/22/25 22:45 07/22/25 22:50 07/22/25 22:55 Temperature Pulse Rate Respiratory Rate Blood Pressure Pulse Oximetry 94 95 95 Oxygen Delivery 07/22/25 23:00 07/22/25 23:05 07/22/25 23:10 Temperature Pulse Rate Respiratory Rate Blood Pressure Pulse Oximetry 95 94 94 Oxygen Delivery 07/22/25 23:15 07/22/25 23:20 07/22/25 23:25 Temperature Pulse Rate Respiratory Rate Blood Pressure Pulse Oximetry 94 93 93 Oxygen Delivery 07/22/25 23:30 07/22/25 23:35 07/22/25 23:40 Temperature Pulse Rate Respiratory Rate Blood Pressure Pulse Oximetry 93 93 93 Oxygen Delivery 07/22/25 23:45 07/22/25 23:50 07/22/25 23:55 Temperature Pulse Rate Respiratory Rate Blood Pressure Pulse Oximetry 95 94 94 Oxygen Delivery 07/23/25 00:00 07/23/25 00:05 07/23/25 00:10 Temperature Pulse Rate Respiratory Rate Blood Pressure Pulse Oximetry 93 94 96 Oxygen Delivery 07/23/25 00:15 07/23/25 00:20 07/23/25 00:25 Temperature Pulse Rate Respiratory Rate Blood Pressure Pulse Oximetry 94 94 94 Oxygen Delivery 07/23/25 00:30 07/23/25 00:35 07/23/25 00:40 Temperature Pulse Rate Respiratory Rate Blood Pressure Pulse Oximetry 96 94 94 Oxygen Delivery 07/23/25 00:45 07/23/25 00:50 07/23/25 00:55 Temperature Pulse Rate 77 Respiratory Rate Blood Pressure 130/72 Pulse Oximetry 94 97 98 Oxygen Delivery 07/23/25 01:00 07/23/25 01:00 07/23/25 01:05 Temperature 98.7 F Pulse Rate 87 Respiratory Rate 16 Blood Pressure 130/72 Pulse Oximetry 98 99 94 Oxygen Delivery 07/23/25 01:10 07/23/25 01:15 07/23/25 01:20 Temperature Pulse Rate Respiratory Rate Blood Pressure Pulse Oximetry 95 95 95 Oxygen Delivery 07/23/25 01:25 07/23/25 01:30 07/23/25 01:35 Temperature Pulse Rate Respiratory Rate Blood Pressure Pulse Oximetry 96 95 95 Oxygen Delivery 07/23/25 01:40 07/23/25 01:45 07/23/25 01:50 Temperature Pulse Rate Respiratory Rate Blood Pressure Pulse Oximetry 95 95 94 Oxygen Delivery 07/23/25 01:55 07/23/25 02:00 07/23/25 02:05 Temperature Pulse Rate Respiratory Rate Blood Pressure Pulse Oximetry 94 95 95 Oxygen Delivery 07/23/25 02:10 07/23/25 02:15 07/23/25 02:20 Temperature Pulse Rate Respiratory Rate Blood Pressure Pulse Oximetry 95 96 96 Oxygen Delivery 07/23/25 02:25 07/23/25 02:30 07/23/25 02:35 Temperature Pulse Rate Respiratory Rate Blood Pressure Pulse Oximetry 95 94 97 Oxygen Delivery 07/23/25 02:40 07/23/25 02:45 07/23/25 02:50 Temperature Pulse Rate Respiratory Rate Blood Pressure Pulse Oximetry 96 98 95 Oxygen Delivery 07/23/25 02:55 07/23/25 03:00 07/23/25 03:05 Temperature Pulse Rate Respiratory Rate Blood Pressure Pulse Oximetry 99 96 96 Oxygen Delivery 07/23/25 03:09 07/23/25 03:10 07/23/25 03:15 Temperature Pulse Rate Respiratory Rate Blood Pressure Pulse Oximetry 98 96 95 Oxygen Delivery 07/23/25 03:20 07/23/25 03:25 07/23/25 03:30 Temperature Pulse Rate Respiratory Rate Blood Pressure Pulse Oximetry 94 95 94 Oxygen Delivery 07/23/25 03:35 07/23/25 03:40 07/23/25 03:45 Temperature Pulse Rate Respiratory Rate Blood Pressure Pulse Oximetry 94 94 94 Oxygen Delivery 07/23/25 03:50 07/23/25 03:53 07/23/25 03:55 Temperature 97.2 F L Pulse Rate 77 Respiratory Rate 18 Blood Pressure 153/87 H Pulse Oximetry 97 97 99 Oxygen Delivery 07/23/25 03:56 07/23/25 04:57 07/23/25 04:58 Temperature Pulse Rate 77 69 Respiratory Rate Blood Pressure 153/87 H 134/77 Pulse Oximetry 97 Oxygen Delivery 07/23/25 05:02 07/23/25 05:07 07/23/25 05:12 Temperature Pulse Rate Respiratory Rate Blood Pressure Pulse Oximetry 100 97 97 Oxygen Delivery 07/23/25 05:17 07/23/25 05:22 07/23/25 05:27 Temperature Pulse Rate Respiratory Rate Blood Pressure Pulse Oximetry 97 97 97 Oxygen Delivery 07/23/25 05:32 07/23/25 05:37 07/23/25 05:42 Temperature Pulse Rate Respiratory Rate Blood Pressure Pulse Oximetry 97 96 96 Oxygen Delivery 07/23/25 05:47 07/23/25 05:52 07/23/25 05:57 Temperature Pulse Rate Respiratory Rate Blood Pressure Pulse Oximetry 96 96 96 Oxygen Delivery 07/23/25 06:02 07/23/25 06:07 07/23/25 06:12 Temperature Pulse Rate Respiratory Rate Blood Pressure Pulse Oximetry 96 96 96 Oxygen Delivery 07/23/25 06:17 07/23/25 06:22 07/23/25 06:27 Temperature Pulse Rate Respiratory Rate Blood Pressure Pulse Oximetry 100 95 97 Oxygen Delivery 07/23/25 06:32 07/23/25 06:37 07/23/25 06:42 Temperature Pulse Rate Respiratory Rate Blood Pressure Pulse Oximetry 95 93 98 Oxygen Delivery 07/23/25 06:47 07/23/25 06:52 07/23/25 06:57 Temperature Pulse Rate Respiratory Rate Blood Pressure Pulse Oximetry 97 97 96 Oxygen Delivery 07/23/25 07:02 07/23/25 07:07 07/23/25 07:12 Temperature Pulse Rate Respiratory Rate Blood Pressure Pulse Oximetry 96 97 96 Oxygen Delivery 07/23/25 07:17 07/23/25 07:22 07/23/25 07:27 Temperature Pulse Rate Respiratory Rate Blood Pressure Pulse Oximetry 96 96 97 Oxygen Delivery 07/23/25 07:32 07/23/25 07:37 07/23/25 07:42 Temperature Pulse Rate Respiratory Rate Blood Pressure Pulse Oximetry 97 96 97 Oxygen Delivery 07/23/25 07:47 07/23/25 07:52 07/23/25 07:57 Temperature Pulse Rate Respiratory Rate Blood Pressure Pulse Oximetry 97 97 97 Oxygen Delivery 07/23/25 08:02 07/23/25 08:07 07/23/25 08:12 Temperature Pulse Rate Respiratory Rate Blood Pressure Pulse Oximetry 97 98 97 Oxygen Delivery 07/23/25 08:17 07/23/25 08:22 07/23/25 08:27 Temperature Pulse Rate Respiratory Rate Blood Pressure Pulse Oximetry 97 97 97 Oxygen Delivery 07/23/25 08:32 07/23/25 08:37 07/23/25 08:42 Temperature Pulse Rate Respiratory Rate Blood Pressure Pulse Oximetry 98 98 98 Oxygen Delivery 07/23/25 08:45 07/23/25 08:49 07/23/25 08:50 Temperature Pulse Rate 73 Respiratory Rate Blood Pressure 149/80 H Pulse Oximetry 94 97 Oxygen Delivery 07/23/25 08:50 07/23/25 08:56 07/23/25 08:57 Temperature 97.7 F Pulse Rate 79 83 Respiratory Rate 14 Blood Pressure 149/80 H Pulse Oximetry 100 100 Oxygen Delivery 07/23/25 09:00 07/23/25 09:02 07/23/25 09:07 Temperature 97.7 F Pulse Rate 83 Respiratory Rate 14 Blood Pressure 149/80 H Pulse Oximetry 97 100 100 Oxygen Delivery 07/23/25 09:12 07/23/25 09:17 07/23/25 09:22 Temperature Pulse Rate Respiratory Rate Blood Pressure Pulse Oximetry 100 100 94 Oxygen Delivery 07/23/25 09:27 07/23/25 09:32 07/23/25 09:37 Temperature Pulse Rate Respiratory Rate Blood Pressure Pulse Oximetry 95 97 98 Oxygen Delivery 07/23/25 09:42 07/23/25 09:47 07/23/25 09:52 Temperature Pulse Rate Respiratory Rate Blood Pressure Pulse Oximetry 94 96 94 Oxygen Delivery 07/23/25 09:57 07/23/25 10:02 07/23/25 10:05 Temperature Pulse Rate Respiratory Rate Blood Pressure Pulse Oximetry 94 100 96 Oxygen Delivery 07/23/25 10:10 07/23/25 10:15 07/23/25 10:20 Temperature Pulse Rate Respiratory Rate Blood Pressure Pulse Oximetry 96 96 96 Oxygen Delivery 07/23/25 10:25 07/23/25 10:30 07/23/25 10:35 Temperature Pulse Rate Respiratory Rate Blood Pressure Pulse Oximetry 96 99 96 Oxygen Delivery 07/23/25 10:40 07/23/25 10:45 07/23/25 10:48 Temperature 97.5 F L Pulse Rate 85 Respiratory Rate 16 Blood Pressure 143/81 H Pulse Oximetry 95 96 99 Oxygen Delivery 07/23/25 10:50 07/23/25 12:39 07/23/25 12:40 Temperature Pulse Rate 79 84 Respiratory Rate Blood Pressure 143/81 H 141/83 H Pulse Oximetry 97 Oxygen Delivery 07/23/25 12:47 Temperature Pulse Rate 89 Respiratory Rate 18 Blood Pressure 141/83 H Pulse Oximetry 97 Oxygen Delivery Exam Const: General: no acute distress Eyes: General: appearance normal, both eyes and all related structures Resp: Effort & Inspection: normal respiratory effort Cardio: Rate: regular rate Skin: General skin exam: no rashes or lesions noted Neuro: Cognition (Neuro): normal cognition Extrem: General: normal to inspection Psych: Mental Status: mental status grossly normal H&P: Results Labs Labs: Short CBC 07/22/25 07/23/25 Range/Units 16:20 04:57 WBC 7.6 6.8 (4.5-10.0) K/mm3 Hgb 11.8 L 11.7 L (12.0-15.0) g/dL Hct 36.6 L 36.4 L (37.0-47.0) % Plt Count 245 231 (150-375) k/mm3 BMP 07/22/25 07/23/25 16:20 04:57 Sodium 137 136 L Potassium 4.1 3.6 Chloride 106 104 Carbon Dioxide 25 24 BUN 26 H 19 H Creatinine 1.07 H 0.84 Glucose 106 102 Calcium 9.2 7.2 L Liver Function 07/22/25 07/23/25 Range/Units 16:20 04:57 Total Bilirubin 0.3 0.2 (0.2-1.3) mg/dL AST 29 24 (14-36) U/L ALT 28 26 (6-35) U/L Alkaline Phosphatase 63 70 (38-126) U/L Albumin 3.9 3.8 (3.5-5.1) g/dL Assessment and Plan Assessment and plan (1) hypertension: Code(s): O16.5 - Unspecified maternal hypertension, complicating the puerperium Status: Acute Assessment and Plan: will continue with the plan for IV magnesium for 24 hours. Labs do not show preeclampsia. Will adjust her antihypertensive to add Procardia. will obtain a Internal Medicine consult since this is her 2nd admission for severe blood pressures.
--- NOTE | 2025-07-23 14:19 | WPDCN ---
Assessment and Plan Assessment and plan (1) hypertension: Code(s): O16.5 - Unspecified maternal hypertension, complicating the puerperium Status: Acute Plan HTN -Continue Labetalol 200 mg PO BID -Started Nifedipine 60 mg PO QD by Education Teacher -Currently BP under control -If not controlled can increase Labetalol 200 mg PO BID to TID as outpatient HPI Data of Consult Date/Time: 07/23/25 14:19 Requesting Physician: Lencho Aviles MD Primary Care Provider: UNKNOWN,DOCTOR Consult Narrative Narrative: Jeannine Myles is a 34-year-old female, 2 weeks status post , who was admitted due to hypertension. Patient is consulted for a second opinion for HTN. Patient is admitted twice for HTN after her second delivery. Patient reports no history of hypertension until during her 2nd . Patient's 2nd was induced due to hypertension. Patient was discharged on labetalol 100 mg p.o. b.i.d. Patient was admitted on 07/18 due to headache and hypertensive urgency. Patient was discharged with labetalol 1 mg p.o. b.i.d.. Unfortunately, the Patient's blood pressure was fine only for a few days and started having headaches again and episodes of floaters. During this admission, patient is currently on labetalol 200 mg p.o. b.i.d., and Education Teacher began nifedipine 60 mg p.o. q.d.. Recommend further medication change as an outpatient. Review of Systems Review of Systems: All systems reviewed & are unremarkable except as noted in HPI and below Constitutional: Constitutional: Reports no additional constitutional complaints and Denies headache(s) ENT: Reports system reviewed and no additional complaints, except as documented and Denies headache(s) Cardiovascular: Cardiovascular: Denies chest pain and Denies dyspnea Respiratory: Respiratory: Denies dyspnea Gastrointestinal: Gastrointestinal: Reports no additional gastrointestinal complaints Genitourinary: Genitourinary: Reports amenorrhea Musculoskeletal: Musculoskeletal: Reports no additional musculoskeletal complaints Integumentary/Breasts: Skin/Breast: Denies breast mass and Denies rash Neurologic: Denies headache(s) Psychiatric: Psychiatric: Reports no additional psychiatric complaints PMFSH Past Medical History Medical History Depression Anxiety Surgical History Surgical History S/P tonsillectomy Family History Family History Mother Breast cancer Father Hypertension Social History Social History Smoking status: Never smoker Second hand tobacco smoke exposure: No Substance use: never Lack of Transportation: No Lack of Food: Never True Current Housing: I Have Housing Concerned About Future Housing: No Difficulty Paying Gas/Electric Bills: No Difficulty Paying for Meds: No Currently Unemployed: No Education: Bachelor's Degree Difficulty w/ Childcare or Family Care: No Spiritual care concerns: No Meds Home Medications and Allergies Home Medications ?Medication ?Instructions ?Recorded ?Confirmed ?Type sertraline 50 mg tablet (Zoloft) 100 mg (2 x 50 mg) PO DAILY 90 08/18/22 07/17/25 Rx days #90 tabs vitamins 30 30 mg iron-10 cap PO 01/30/25 06/28/25 History mg iron-folic acid 1 mg-om3 capsule Labetolol 100 mg PO Q12H #30 tabs 07/10/25 07/17/25 Rx ibuprofen 600 mg tablet 600 mg PO Q6H PRN Cramping #20 tabs 07/10/25 07/17/25 Rx labetalol 200 mg tablet 200 mg PO Q12H #60 tabs 07/19/25 Rx Allergies Allergy/AdvReac Type Severity Reaction Status Date / Time Sulfa (Sulfonamide Allergy Mild Rash Verified 07/17/25 16:42 Antibiotics) Vital Signs Vital Signs - 24 hr 07/22/25 16:30 07/22/25 16:31 07/22/25 16:46 Temperature Pulse Rate 63 63 62 Respiratory Rate Blood Pressure 175/90 H 169/89 H 175/89 H Pulse Oximetry Oxygen Delivery 07/22/25 17:01 07/22/25 17:16 07/22/25 17:23 Temperature Pulse Rate 63 69 Respiratory Rate 16 Blood Pressure 167/84 H 160/87 H Pulse Oximetry Oxygen Delivery 07/22/25 17:31 07/22/25 17:31 07/22/25 17:37 Temperature Pulse Rate 66 67 Respiratory Rate Blood Pressure 156/81 H 162/87 H Pulse Oximetry Oxygen Delivery Room Air 07/22/25 17:41 07/22/25 17:46 07/22/25 17:51 Temperature 97.4 F L Pulse Rate 67 67 Respiratory Rate 16 Blood Pressure 158/86 H Pulse Oximetry Oxygen Delivery 07/22/25 17:55 07/22/25 18:00 07/22/25 18:01 Temperature Pulse Rate 65 Respiratory Rate Blood Pressure 161/88 H Pulse Oximetry 98 97 Oxygen Delivery 07/22/25 18:05 07/22/25 18:07 07/22/25 18:10 Temperature Pulse Rate 64 66 Respiratory Rate Blood Pressure 162/89 H Pulse Oximetry 97 96 Oxygen Delivery 07/22/25 18:13 07/22/25 18:16 07/22/25 18:18 Temperature Pulse Rate 67 Respiratory Rate Blood Pressure 149/93 H Pulse Oximetry 82 L 95 Oxygen Delivery 07/22/25 18:23 07/22/25 18:25 07/22/25 18:28 Temperature Pulse Rate 68 Respiratory Rate Blood Pressure 151/96 H Pulse Oximetry 97 97 Oxygen Delivery 07/22/25 18:31 07/22/25 18:33 07/22/25 18:38 Temperature Pulse Rate 66 Respiratory Rate Blood Pressure 156/87 H Pulse Oximetry 96 96 Oxygen Delivery 07/22/25 18:43 07/22/25 18:46 07/22/25 18:48 Temperature Pulse Rate 68 Respiratory Rate Blood Pressure 142/94 H Pulse Oximetry 100 98 Oxygen Delivery 07/22/25 18:53 07/22/25 18:58 07/22/25 19:01 Temperature Pulse Rate 63 Respiratory Rate Blood Pressure 153/81 H Pulse Oximetry 97 98 Oxygen Delivery 07/22/25 19:03 07/22/25 19:08 07/22/25 19:13 Temperature Pulse Rate Respiratory Rate Blood Pressure Pulse Oximetry 97 97 98 Oxygen Delivery 07/22/25 19:16 07/22/25 19:18 07/22/25 19:23 Temperature Pulse Rate 71 Respiratory Rate Blood Pressure 153/88 H Pulse Oximetry 98 97 Oxygen Delivery 07/22/25 19:24 07/22/25 19:29 07/22/25 19:31 Temperature Pulse Rate 83 Respiratory Rate Blood Pressure 154/95 H Pulse Oximetry 92 99 Oxygen Delivery 07/22/25 19:34 07/22/25 19:39 07/22/25 19:44 Temperature Pulse Rate Respiratory Rate Blood Pressure Pulse Oximetry 99 99 97 Oxygen Delivery 07/22/25 19:45 07/22/25 19:45 07/22/25 19:45 Temperature Pulse Rate Respiratory Rate Blood Pressure Pulse Oximetry 98 98 98 Oxygen Delivery 07/22/25 19:50 07/22/25 19:55 07/22/25 20:00 Temperature Pulse Rate Respiratory Rate Blood Pressure Pulse Oximetry 98 100 97 Oxygen Delivery 07/22/25 20:05 07/22/25 20:10 07/22/25 20:15 Temperature Pulse Rate Respiratory Rate Blood Pressure Pulse Oximetry 98 100 100 Oxygen Delivery 07/22/25 20:20 07/22/25 20:25 07/22/25 20:26 Temperature Pulse Rate Respiratory Rate Blood Pressure Pulse Oximetry 99 100 99 Oxygen Delivery 07/22/25 20:31 07/22/25 20:36 07/22/25 20:41 Temperature Pulse Rate Respiratory Rate Blood Pressure Pulse Oximetry 96 96 96 Oxygen Delivery 07/22/25 20:46 07/22/25 20:51 07/22/25 20:56 Temperature Pulse Rate 74 Respiratory Rate Blood Pressure 136/73 Pulse Oximetry 95 96 Oxygen Delivery 07/22/25 20:57 07/22/25 20:57 07/22/25 20:58 Temperature Pulse Rate 72 Respiratory Rate Blood Pressure Pulse Oximetry 88 L 100 Oxygen Delivery 07/22/25 20:59 07/22/25 20:59 07/22/25 21:02 Temperature 97.3 F L Pulse Rate 76 Respiratory Rate 18 Blood Pressure 136/73 Pulse Oximetry 100 98 98 Oxygen Delivery 07/22/25 21:04 07/22/25 21:09 07/22/25 21:09 Temperature Pulse Rate Respiratory Rate Blood Pressure Pulse Oximetry 100 95 98 Oxygen Delivery 07/22/25 21:14 07/22/25 21:19 07/22/25 21:24 Temperature Pulse Rate Respiratory Rate Blood Pressure Pulse Oximetry 96 96 96 Oxygen Delivery 07/22/25 21:29 07/22/25 21:34 07/22/25 21:35 Temperature Pulse Rate Respiratory Rate Blood Pressure Pulse Oximetry 98 94 94 Oxygen Delivery 07/22/25 21:40 07/22/25 21:50 07/22/25 21:55 Temperature Pulse Rate Respiratory Rate Blood Pressure Pulse Oximetry 100 98 95 Oxygen Delivery 07/22/25 22:00 07/22/25 22:05 07/22/25 22:10 Temperature Pulse Rate Respiratory Rate Blood Pressure Pulse Oximetry 95 95 95 Oxygen Delivery 07/22/25 22:15 07/22/25 22:20 07/22/25 22:25 Temperature Pulse Rate Respiratory Rate Blood Pressure Pulse Oximetry 96 96 95 Oxygen Delivery 07/22/25 22:30 07/22/25 22:35 07/22/25 22:40 Temperature Pulse Rate Respiratory Rate Blood Pressure Pulse Oximetry 94 95 93 Oxygen Delivery 07/22/25 22:45 07/22/25 22:50 07/22/25 22:55 Temperature Pulse Rate Respiratory Rate Blood Pressure Pulse Oximetry 94 95 95 Oxygen Delivery 07/22/25 23:00 07/22/25 23:05 07/22/25 23:10 Temperature Pulse Rate Respiratory Rate Blood Pressure Pulse Oximetry 95 94 94 Oxygen Delivery 07/22/25 23:15 07/22/25 23:20 07/22/25 23:25 Temperature Pulse Rate Respiratory Rate Blood Pressure Pulse Oximetry 94 93 93 Oxygen Delivery 07/22/25 23:30 07/22/25 23:35 07/22/25 23:40 Temperature Pulse Rate Respiratory Rate Blood Pressure Pulse Oximetry 93 93 93 Oxygen Delivery 07/22/25 23:45 07/22/25 23:50 07/22/25 23:55 Temperature Pulse Rate Respiratory Rate Blood Pressure Pulse Oximetry 95 94 94 Oxygen Delivery 07/23/25 00:00 07/23/25 00:05 07/23/25 00:10 Temperature Pulse Rate Respiratory Rate Blood Pressure Pulse Oximetry 93 94 96 Oxygen Delivery 07/23/25 00:15 07/23/25 00:20 07/23/25 00:25 Temperature Pulse Rate Respiratory Rate Blood Pressure Pulse Oximetry 94 94 94 Oxygen Delivery 07/23/25 00:30 07/23/25 00:35 07/23/25 00:40 Temperature Pulse Rate Respiratory Rate Blood Pressure Pulse Oximetry 96 94 94 Oxygen Delivery 07/23/25 00:45 07/23/25 00:50 07/23/25 00:55 Temperature Pulse Rate 77 Respiratory Rate Blood Pressure 130/72 Pulse Oximetry 94 97 98 Oxygen Delivery 07/23/25 01:00 07/23/25 01:00 07/23/25 01:05 Temperature 98.7 F Pulse Rate 87 Respiratory Rate 16 Blood Pressure 130/72 Pulse Oximetry 98 99 94 Oxygen Delivery 07/23/25 01:10 07/23/25 01:15 07/23/25 01:20 Temperature Pulse Rate Respiratory Rate Blood Pressure Pulse Oximetry 95 95 95 Oxygen Delivery 07/23/25 01:25 07/23/25 01:30 07/23/25 01:35 Temperature Pulse Rate Respiratory Rate Blood Pressure Pulse Oximetry 96 95 95 Oxygen Delivery 07/23/25 01:40 07/23/25 01:45 07/23/25 01:50 Temperature Pulse Rate Respiratory Rate Blood Pressure Pulse Oximetry 95 95 94 Oxygen Delivery 07/23/25 01:55 07/23/25 02:00 07/23/25 02:05 Temperature Pulse Rate Respiratory Rate Blood Pressure Pulse Oximetry 94 95 95 Oxygen Delivery 07/23/25 02:10 07/23/25 02:15 07/23/25 02:20 Temperature Pulse Rate Respiratory Rate Blood Pressure Pulse Oximetry 95 96 96 Oxygen Delivery 07/23/25 02:25 07/23/25 02:30 07/23/25 02:35 Temperature Pulse Rate Respiratory Rate Blood Pressure Pulse Oximetry 95 94 97 Oxygen Delivery 07/23/25 02:40 07/23/25 02:45 07/23/25 02:50 Temperature Pulse Rate Respiratory Rate Blood Pressure Pulse Oximetry 96 98 95 Oxygen Delivery 07/23/25 02:55 07/23/25 03:00 07/23/25 03:05 Temperature Pulse Rate Respiratory Rate Blood Pressure Pulse Oximetry 99 96 96 Oxygen Delivery 07/23/25 03:09 07/23/25 03:10 07/23/25 03:15 Temperature Pulse Rate Respiratory Rate Blood Pressure Pulse Oximetry 98 96 95 Oxygen Delivery 07/23/25 03:20 07/23/25 03:25 07/23/25 03:30 Temperature Pulse Rate Respiratory Rate Blood Pressure Pulse Oximetry 94 95 94 Oxygen Delivery 07/23/25 03:35 07/23/25 03:40 07/23/25 03:45 Temperature Pulse Rate Respiratory Rate Blood Pressure Pulse Oximetry 94 94 94 Oxygen Delivery 07/23/25 03:50 07/23/25 03:53 07/23/25 03:55 Temperature 97.2 F L Pulse Rate 77 Respiratory Rate 18 Blood Pressure 153/87 H Pulse Oximetry 97 97 99 Oxygen Delivery 07/23/25 03:56 07/23/25 04:57 07/23/25 04:58 Temperature Pulse Rate 77 69 Respiratory Rate Blood Pressure 153/87 H 134/77 Pulse Oximetry 97 Oxygen Delivery 07/23/25 05:02 07/23/25 05:07 07/23/25 05:12 Temperature Pulse Rate Respiratory Rate Blood Pressure Pulse Oximetry 100 97 97 Oxygen Delivery 07/23/25 05:17 07/23/25 05:22 07/23/25 05:27 Temperature Pulse Rate Respiratory Rate Blood Pressure Pulse Oximetry 97 97 97 Oxygen Delivery 07/23/25 05:32 07/23/25 05:37 07/23/25 05:42 Temperature Pulse Rate Respiratory Rate Blood Pressure Pulse Oximetry 97 96 96 Oxygen Delivery 07/23/25 05:47 07/23/25 05:52 07/23/25 05:57 Temperature Pulse Rate Respiratory Rate Blood Pressure Pulse Oximetry 96 96 96 Oxygen Delivery 07/23/25 06:02 07/23/25 06:07 07/23/25 06:12 Temperature Pulse Rate Respiratory Rate Blood Pressure Pulse Oximetry 96 96 96 Oxygen Delivery 07/23/25 06:17 07/23/25 06:22 07/23/25 06:27 Temperature Pulse Rate Respiratory Rate Blood Pressure Pulse Oximetry 100 95 97 Oxygen Delivery 07/23/25 06:32 07/23/25 06:37 07/23/25 06:42 Temperature Pulse Rate Respiratory Rate Blood Pressure Pulse Oximetry 95 93 98 Oxygen Delivery 07/23/25 06:47 07/23/25 06:52 07/23/25 06:57 Temperature Pulse Rate Respiratory Rate Blood Pressure Pulse Oximetry 97 97 96 Oxygen Delivery 07/23/25 07:02 07/23/25 07:07 07/23/25 07:12 Temperature Pulse Rate Respiratory Rate Blood Pressure Pulse Oximetry 96 97 96 Oxygen Delivery 07/23/25 07:17 07/23/25 07:22 07/23/25 07:27 Temperature Pulse Rate Respiratory Rate Blood Pressure Pulse Oximetry 96 96 97 Oxygen Delivery 07/23/25 07:32 07/23/25 07:37 07/23/25 07:42 Temperature Pulse Rate Respiratory Rate Blood Pressure Pulse Oximetry 97 96 97 Oxygen Delivery 07/23/25 07:47 07/23/25 07:52 07/23/25 07:57 Temperature Pulse Rate Respiratory Rate Blood Pressure Pulse Oximetry 97 97 97 Oxygen Delivery 07/23/25 08:02 07/23/25 08:07 07/23/25 08:12 Temperature Pulse Rate Respiratory Rate Blood Pressure Pulse Oximetry 97 98 97 Oxygen Delivery 07/23/25 08:17 07/23/25 08:22 07/23/25 08:27 Temperature Pulse Rate Respiratory Rate Blood Pressure Pulse Oximetry 97 97 97 Oxygen Delivery 07/23/25 08:32 07/23/25 08:37 07/23/25 08:42 Temperature Pulse Rate Respiratory Rate Blood Pressure Pulse Oximetry 98 98 98 Oxygen Delivery 07/23/25 08:45 07/23/25 08:49 07/23/25 08:50 Temperature Pulse Rate 73 Respiratory Rate Blood Pressure 149/80 H Pulse Oximetry 94 97 Oxygen Delivery 07/23/25 08:50 07/23/25 08:56 07/23/25 08:57 Temperature 97.7 F Pulse Rate 79 83 Respiratory Rate 14 Blood Pressure 149/80 H Pulse Oximetry 100 100 Oxygen Delivery 07/23/25 09:00 07/23/25 09:02 07/23/25 09:07 Temperature 97.7 F Pulse Rate 83 Respiratory Rate 14 Blood Pressure 149/80 H Pulse Oximetry 97 100 100 Oxygen Delivery 07/23/25 09:12 07/23/25 09:17 07/23/25 09:22 Temperature Pulse Rate Respiratory Rate Blood Pressure Pulse Oximetry 100 100 94 Oxygen Delivery 07/23/25 09:27 07/23/25 09:32 07/23/25 09:37 Temperature Pulse Rate Respiratory Rate Blood Pressure Pulse Oximetry 95 97 98 Oxygen Delivery 07/23/25 09:42 07/23/25 09:47 07/23/25 09:52 Temperature Pulse Rate Respiratory Rate Blood Pressure Pulse Oximetry 94 96 94 Oxygen Delivery 07/23/25 09:57 07/23/25 10:02 07/23/25 10:05 Temperature Pulse Rate Respiratory Rate Blood Pressure Pulse Oximetry 94 100 96 Oxygen Delivery 07/23/25 10:10 07/23/25 10:15 07/23/25 10:20 Temperature Pulse Rate Respiratory Rate Blood Pressure Pulse Oximetry 96 96 96 Oxygen Delivery 07/23/25 10:25 07/23/25 10:30 07/23/25 10:35 Temperature Pulse Rate Respiratory Rate Blood Pressure Pulse Oximetry 96 99 96 Oxygen Delivery 07/23/25 10:40 07/23/25 10:45 07/23/25 10:48 Temperature 97.5 F L Pulse Rate 85 Respiratory Rate 16 Blood Pressure 143/81 H Pulse Oximetry 95 96 99 Oxygen Delivery 07/23/25 10:50 07/23/25 12:39 07/23/25 12:40 Temperature Pulse Rate 79 84 Respiratory Rate Blood Pressure 143/81 H 141/83 H Pulse Oximetry 97 Oxygen Delivery 07/23/25 12:47 Temperature Pulse Rate 89 Respiratory Rate 18 Blood Pressure 141/83 H Pulse Oximetry 97 Oxygen Delivery Exam Const: General: no acute distress Eyes: General: appearance normal, both eyes and all related structures Resp: Effort & Inspection: normal respiratory effort Cardio: Rate: regular rate Skin: General skin exam: no rashes or lesions noted Neuro: Cognition (Neuro): normal cognition Extrem: General: normal to inspection Psych: Mental Status: mental status grossly normal Results Labs 07/23/25 04:57 07/23/25 04:57 Labs: Short CBC 07/22/25 07/23/25 Range/Units 16:20 04:57 WBC 7.6 6.8 (4.5-10.0) K/mm3 Hgb 11.8 L 11.7 L (12.0-15.0) g/dL Hct 36.6 L 36.4 L (37.0-47.0) % Plt Count 245 231 (150-375) k/mm3 BMP 07/22/25 07/23/25 16:20 04:57 Sodium 137 136 L Potassium 4.1 3.6 Chloride 106 104 Carbon Dioxide 25 24 BUN 26 H 19 H Creatinine 1.07 H 0.84 Glucose 106 102 Calcium 9.2 7.2 L Liver Function 07/22/25 07/23/25 Range/Units 16:20 04:57 Total Bilirubin 0.3 0.2 (0.2-1.3) mg/dL AST 29 24 (14-36) U/L ALT 28 26 (6-35) U/L Alkaline Phosphatase 63 70 (38-126) U/L Albumin 3.9 3.8 (3.5-5.1) g/dL
[2025-07-24] VITALS (19 sets, daily range): BP systolic 115–156; BP diastolic 60–92; PULSE 66–83; RESP 14–16; TEMP 36.7–37.1; O2SAT 97–99
--- NOTE | 2025-07-24 | ECHO_ITS ---
Patient Info Name: Jeannine Myles Age: 34 years : 1990 Gender: Female Ht: 69 in Wt: 205 lbs BSA: 2.15 m2 HR: 68 bpm BP: 137 / 77 mmHg Technical Quality: Good Exam Date: 07/24/2025 9:38 AM Patient Status: unknown Admit Date: 07/22/2025 Exam Type: CA echo doppler color flow Complete two-dimensional, color flow and Doppler transthoracic echocardiogram is performed. Direct Support Professional Home Health: Nadia Brito Attending Provider: Lencho Aviles MD Summary 1. Complete two-dimensional, color flow and Doppler transthoracic echocardiogram is performed. 2. Left ventricular systolic function is normal, estimated at 60-65. 3. The left ventricular diastolic function is normal. 4. There is mild mitral valve regurgitation. 5. There is mild pulmonic regurgitation. Left Ventricle Left ventricular chamber dimension is normal. Left ventricular systolic function is normal, estimated at 60-65. There is no increased left ventricular wall thickness. Left ventricular septal wall motion is normal. The left ventricular diastolic function is normal. Right Ventricle Right ventricular chamber dimension is normal. Right ventricular systolic function is normal. Left Atria Left atrial chamber dimension is normal. Right Atria Right atrial chamber dimension is normal. Aortic Valve The aortic valve is trileaflet. There is no aortic valve sclerosis. There is no aortic valve stenosis. There is no aortic valve regurgitation. Pulmonic Valve The pulmonic valve is normal. There is no pulmonic valve stenosis. There is mild pulmonic regurgitation. Mitral Valve The mitral valve has normal leaflets. There is no mitral valve stenosis. There is mild mitral valve regurgitation. Tricuspid Valve The tricuspid valve leaflets are normal. There is no significant tricuspid valve stenosis. There is no tricuspid valve regurgitation. Pericardium/Pleural The pericardium appears normal. There is no pericardial effusion. Inferior Vena Cava Normal inferior vena cava with >50% collapse upon inspiration consistent with normal right atrial pressure, 5 mmHg. Aorta The aortic root size at the sinus of Valsalva is normal. The prox ascending aorta size is normal. Left Ventricular Outflow Tract Name Value Normal LVOT 2D LVOT Diameter 2.0 cm LVOT Doppler LVOT Peak Velocity 136 cm/s LVOT Peak Gradient 7 mmHg LVOT Mean Gradient 4 mmHg LVOT VTI 32 cm LVOT Stroke Volume 96 ml LVOT CO 6.5 l/min LVOT CI 3.0 l/min/m2 Pulmonic Valve Name Value Normal RVOT Doppler RVOT Peak Velocity 74 cm/s RVOT Peak Gradient 2 mmHg PV Doppler PV Peak Velocity 116 cm/s PV Peak Gradient 5 mmHg Mitral Valve Name Value Normal MV Diastolic Function MV E Peak Velocity 124 cm/s MV A Peak Velocity 66 cm/s MV E/A 1.9 MV Decel Time (PW) 204 ms MV Annular TDI MV E/e' (Septal) 12.9 MV E/e' (Lateral) 10.2 MV E/e' (Average) 11.5 Tricuspid Valve Name Value Normal Estimated PAP/RSVP RA Pressure 5 mmHg <=5 Aortic Valve Name Value Normal AV Doppler AV Peak Velocity 163 cm/s AV Peak Gradient 11 mmHg AV Area (Cont Eq Chacorta) 2.5 cm2 AV DI (Chacorta) 0.83 AV Regurgitation 2D LVOT Area 3.0 cm2 Ventricles Name Value Normal LV Dimensions 2D/MM IVS Diastolic Thickness (2D) 1.0 cm 0.6-1.0 LVID Diastole (2D) 4.8 cm 3.8-5.2 LVIW Diastolic Thickness (2D) 0.9 cm 0.6-0.9 LVID Systole (2D) 3.1 cm 2.2-3.5 LVOT Diameter 2.0 cm LV Mass (2D Cubed) 163.73 g 67.00-162.00 LV Mass Index (2D Cubed) 76 g/m2 43-95 Relative Wall Thickness (2D) 0.38 <=0.42 LV Fractional Shortening/Ejection Fraction 2D/MM LV Fractional Shortening (2D) 36 % 27-45 LV EF (2D Teichkaliez) 65 % LV Diastolic Volume (4C MOD) 137 ml LV EF (4C MOD) 53 % LV Diastolic Volume (2C MOD) 146 ml LV EF (2C MOD) 53 % LV Diastolic Volume (BP MOD) 143 ml 46-106 LV Diastolic Volume Index (BP MOD) 67 ml/m2 29-61 LV Systolic Volume (BP MOD) 66 ml 14-42 LV Systolic Volume Index (BP MOD) 31 ml/m2 8-24 LV EF (BP MOD) 54 % 54-74 LV Diastolic Length (4C) 9.0 cm LV Systolic Length (4C) 7.7 cm LV Stroke Volume (4C MOD) 73 ml Atria Name Value Normal LA Dimensions LA Volume (4C A-L) 62 ml LA Volume (BP A-L) 69 ml RA Dimensions RA Systolic Major [place] Length (4C) 5.3 cm 2.2-2.8 RA Area (4C) 15.9 cm2 <=18.0 Report Signatures
[2025-07-24] MEDS: LABETALOL HCL 100 MG TABLET 200 MG PO ×2 (04:00→07:50)
[2025-07-24] MEDS: MULTIVIT/MIN/PREN/FOL AC/IRON TABLET 1 TAB PO (10:48)
[2025-07-24] MEDS: IBUPROFEN 600 MG TABLET PO (11:53)
--- NOTE | 2025-07-24 11:57 | PC.NURSE ---
Pt blood pressure reading as 156/88 @ 1157 inaccurate due to cuff placement. BP reassessed immediately after false reading.
--- NOTE | 2025-07-24 12:32 | PM.OBPNVD ---
OB - PN: Subj Subjective Date/time seen: 07/24/25 12:32 Interval history: She denies headache scotomata or RUQ pain. Blood pressures improving. OB - PN: Obj Data Labs 07/23/25 04:57 07/23/25 04:57 OB - PN A/P Assessment and Plan (1) hypertension: Code(s): O16.5 - Unspecified maternal hypertension, complicating the puerperium Status: Acute Assessment and Plan: Blood pressures improving, No severe range blood pressures. Will continue to monitor. If continue to show improvement then anticipate discharge later today. Time Spent With Patient Time: Total time spent is greater than 50% in coordination of care (as documented) at patient's floor/unit and/or counseling patient:
--- NOTE | 2025-07-24 14:20 | PC.NURSE ---
07/24/25 - 2576 - Hospitalist at bedside to discuss plan of care. DC orders discussed. Pt prefers to DC to home now and follow up with Dr. Aviles on tuesday for echo results.
--- NOTE | 2025-07-24 15:21 | P.PNIM_ITS ---
Progress Note: A&P Assessment and Plan (1) hypertension: Code(s): O16.5 - Unspecified maternal hypertension, complicating the puerperium Status: Acute Plan HTN -Continue Labetalol 200 mg PO BID -Started Nifedipine 60 mg PO QD by Printing Bindery Assistant -Currently BP under control -If not controlled can increase Labetalol 200 mg PO BID to TID as outpatient -Follow up with PCP with BP readings taken at home(At least 5 times a day) Subjective Date/time seen: 07/24/25 15:21 Interval history: Jeannine Myles is a 34-year-old female, 2 weeks status post , who was admitted due to hypertension. Patient is consulted for a second opinion for HTN. Patient is admitted twice for HTN after her second delivery. Patient reports no history of hypertension until during her 2nd . Patient's 2nd was induced due to hypertension. Patient was discharged on labetalol 100 mg p.o. b.i.d. Patient was admitted on 07/18 due to headache and hypertensive urgency. Patient was discharged with labetalol 1 mg p.o. b.i.d.. Unfortunately, the Patient's blood pressure was fine only for a few days and started having headaches again and episodes of floaters. During this admission, patient is currently on labetalol 200 mg p.o. b.i.d., and Printing Bindery Assistant began nifedipine 60 mg p.o. q.d.. Recommend further medication change as an outpatient. 07/24: No acute events. Recommend to follow up with PCP with BP readings (at least 5 times a day).Follow up Echo results with Printing Bindery Assistant. If any concerning find ings in Echo recommend Cardiology follow up. Clear to discharge from medical stand point Review of Systems Review of Systems: All systems reviewed & are unremarkable except as noted in HPI and below Constitutional: Constitutional: Reports no additional constitutional complaints and Denies headache(s) ENT: Reports system reviewed and no additional complaints, except as documented and Denies headache(s) Cardiovascular: Cardiovascular: Denies chest pain and Denies dyspnea Respiratory: Respiratory: Denies dyspnea Gastrointestinal: Gastrointestinal: Reports no additional gastrointestinal complaints Genitourinary: Genitourinary: Reports amenorrhea Musculoskeletal: Musculoskeletal: Reports no additional musculoskeletal complaints Integumentary/Breasts: Skin/Breast: Denies breast mass and Denies rash Neurologic: Denies headache(s) Psychiatric: Psychiatric: Reports no additional psychiatric complaints Exam Const: General: no acute distress Eyes: General: appearance normal, both eyes and all related structures Resp: Effort & Inspection: normal respiratory effort Cardio: Rate: regular rate Skin: General skin exam: no rashes or lesions noted Neuro: Cognition (Neuro): normal cognition Extrem: General: normal to inspection Psych: Mental Status: mental status grossly normal Objective Data Vital Signs Vital Signs: Vital Signs - 24 hr 07/23/25 16:27 07/23/25 16:30 07/23/25 16:31 Temperature Pulse Rate 72 82 Respiratory Rate Blood Pressure 153/80 H Pulse Oximetry 99 Oxygen Delivery 07/23/25 17:00 07/23/25 18:12 07/23/25 19:05 Temperature 97.7 F 98.1 F Pulse Rate 82 65 Respiratory Rate 15 16 Blood Pressure 153/80 H 152/90 H Pulse Oximetry 99 100 Oxygen Delivery Room Air 07/23/25 23:00 07/24/25 04:00 07/24/25 04:00 Temperature 98.1 F 98.1 F Pulse Rate 73 77 77 Respiratory Rate 16 16 Blood Pressure 150/79 H 143/92 H Pulse Oximetry 98 99 Oxygen Delivery 07/24/25 07:49 07/24/25 07:50 07/24/25 07:56 Temperature 98.7 F Pulse Rate 73 83 73 Respiratory Rate 14 Blood Pressure 129/68 129/68 Pulse Oximetry 97 97 Oxygen Delivery 07/24/25 08:18 07/24/25 08:31 07/24/25 09:01 Temperature Pulse Rate 73 71 72 Respiratory Rate Blood Pressure 136/74 123/61 115/60 Pulse Oximetry Oxygen Delivery 07/24/25 09:31 07/24/25 10:01 07/24/25 10:17 Temperature Pulse Rate 71 70 70 Respiratory Rate Blood Pressure 137/77 135/83 143/80 H Pulse Oximetry Oxygen Delivery 07/24/25 10:31 07/24/25 11:46 07/24/25 11:47 Temperature Pulse Rate 66 70 Respiratory Rate Blood Pressure 140/73 156/88 H Pulse Oximetry 97 Oxygen Delivery 07/24/25 11:49 07/24/25 11:56 07/24/25 13:37 Temperature 98.3 F Pulse Rate 70 76 72 Respiratory Rate 16 Blood Pressure 136/83 136/83 149/80 H Pulse Oximetry 97 Oxygen Delivery 07/24/25 14:29 07/24/25 14:30 07/24/25 14:30 Temperature Pulse Rate 77 69 Respiratory Rate Blood Pressure 144/76 H 153/75 H 144/76 H Pulse Oximetry Oxygen Delivery 07/24/25 14:33 Temperature Pulse Rate Respiratory Rate Blood Pressure 153/75 H Pulse Oximetry Oxygen Delivery Intake/Output Intake/Output: Intake & Output 07/21/25 07/22/25 07/23/25 07/24/25 23:59 23:59 23:59 23:59 Intake Total 100 4830 1480 Output Total 6100 1350 Balance 100 -1270 130 Meds/Results Medications: Active Medications Generic Name Dose Route Start Last Admin Trade Name Freq PRN Reason Stop Dose Admin Acetaminophen 650 mg 07/22/25 19:25 07/23/25 08:50 Acetaminophen 325 Mg Tablet PO 650 mg Q6H PRN Administration Mild Pain (1-3) or Fever Lactated Ringer's 1,000 mls @ 75 mls/hr 07/22/25 17:00 07/23/25 17:55 Lr - Lactated Ringers Iv IV CONT 0 mls/hr .[id number] JEREMY Infusion Magnesium Sulfate 500 mls @ 50 mls/hr 07/22/25 17:00 07/23/25 23:00 Magnesium Sulf 20gm/[id number] IV CONT Not Given .Q10H JEREMY Ibuprofen 600 mg 07/22/25 19:25 07/24/25 11:53 Ibuprofen 600 Mg Tablet PO 600 mg Q6H PRN Administration Headache Labetalol HCl 20 mg 07/22/25 17:00 07/22/25 17:22 Labetalol Hcl Inj 100 Mg/20 Ml Vial IV PUSH 20 mg ONCE PRN Administration SBP >/= 160 or DBP >/= 110 Labetalol HCl 40 mg 07/22/25 17:00 07/22/25 17:41 Labetalol Hcl Inj 100 Mg/20 Ml Vial IV PUSH 40 mg ONCE PRN Administration SBP >/= 160 or DBP >/= 110 Labetalol HCl 80 mg 07/22/25 17:00 07/22/25 18:07 Labetalol Hcl Inj 100 Mg/20 Ml Vial IV PUSH 80 mg ONCE PRN Administration SBP >/= 160 or DBP >/= 110 Labetalol HCl 400 mg 07/24/25 16:30 Labetalol Hcl 100 Mg Tablet PO Q12HR JEREMY Nifedipine 60 mg 07/24/25 09:00 07/24/25 10:48 Nifedipine 30 Mg Tab.Er.24 PO 60 mg QAM JEREMY Administration Perflutren Lipid Microsphere 0 ml 07/23/25 16:29 Perflutren Lipid Microspheres 1.5 Ml Vial Diluted To 10 Ml Total Volume IV PUSH 07/26/25 16:29 ONCE PRN adequate visualization Protocol Vit/Calcium/Iron/Folic Ac 1 tab 07/23/25 09:00 07/24/25 10:48 Multivit/Min/Pren/Fol Ac/Iron Tablet PO 1 tab DAILY JEREMY Administration Hospitalist MIPS Advance Care Plan I have confirmed that the patient's Advanced Care Plan is present, code status is documented, or surrogate decision maker is listed in patient medical record.: Yes Medication Reconciliation I have utilized all available resources to obtain, update and review the patients current medications (includes all prescriptions, OTC, herbals, cannabis, and nutritional supplements).: Yes
--- NOTE | 2025-08-12 11:35 | PM.OBDSVD ---
DS: Admitting Diagnosis Discharge Date 07/24/25 Admitting Diagnosis hyertension DS: Discharge Diagnosis Discharge Diagnosis (1) hypertension: Code(s): O16.5 - Unspecified maternal hypertension, complicating the puerperium Status: Acute OB - DS: Summary Hospital Course Hospital Course: She was admitted for hypertension. She received Magnesium for 24 hours. She had Internal medicine consult. Echo performed. Blood pressures did decrease from severe range with antihypertensive medication. She did get discharged with antihypertensive medication. Stable blood pressures. OB Procedures : None OB Procedures Intrapartum: Other (none) OB Procedures: : None Peripartum Data complications: other (hypertension) Time Spent with Patient Time attestation: Total time spent providing and/or coordinating discharge services: Exam Const: General: cooperative Orientation/consciousness: oriented to person, oriented to place and oriented to time Eyes: General: appearance normal, both eyes and all related structures Resp: Effort & Inspection: normal respiratory effort GI: Inspection: normal to inspection Skin: General skin exam: normal color Neuro: General: oriented to person, oriented to place and oriented to time Extrem: General: normal to inspection and no calf tenderness Psych: Appearance: grossly normal Mental Status: mental status grossly normal Discharge Plan Discharge Attending physician on discharge: Lencho Aviles Consulting providers: Bassam Yepez; Yousuf Sawyer Discharging Clinician: Lencho Aviles Anticipated Discharge Date/Time: 07/24/25 14:56 Patient Disposition: Home Activity: may shower, as tolerated and pelvic rest Diet: heart healthy and low sodium Discharge Instructions: Continue Sertraline and vitamins as previously prescribed.OB ANTEPARTUM DISCHARGE INSTRUCTIONS This information is given to help you properly care for yourself at home after your discharge from the hospital. Follow these instructions until your doctor tells you otherwise. DIET: Low Sodium ACTIVITY: As tolerated OTHER INSTRUCTIONS: 200 mg labetalol Q12H 60 mg Procardia XL daily FOLLOW-UP CARE: To see in/on Na Aviles's office on Tuesday @ 9:00 am Valuables released to patient or family? Medications from home returned to patient? IF YOU HAVE ANY QUESTIONS REGARDING THESE INSTRUCTIONS, PLEASE CALL [phone]. IF PROBLEMS ARISE, CALL YOUR PROVIDER. IF EMERGENCY CARE IS NEEDED, [facility] EM[facility] ROOM IS AVAILABLE 24 HOURS A DAY. Patient Language: Belarusian Stand Alone Forms: General Discharge Information Follow-up/Referrals: Lencho Aviles MD [Physician, MA[employer]] - 07/26/25 9:00 am Referral Note: Appointment will be with Rosa Aguilar NP. Discharge Medications: New labetalol 100 mg Tablet 200 mg PO Q12HR Qty: 60 0RF nifedipine [Procardia XL] 30 mg Tablet Extended Release 24hr 60 mg PO QAM Qty: 30 0RF Continued PNV [id number] 30 mg iron-10 mg iron-1 mg capsule PO sertraline [Zoloft] 50 mg Tablet 100 mg PO DAILY 90 Days Qty: 90 3RF ibuprofen 600 mg Tablet 600 mg PO Q6H PRN (Reason: Cramping) Qty: 20 0RF Discontinued Labetolol 100 mg PO Q12H Qty: 30 0RF Date of admission: 07/22/25 17:01 Primary Care Provider: UNKNOWN,DOCTOR Admitting Provider: Adrian Robles Attending physician on admission: Lencho Aviles Condition: Stable
== END 2025-07-24 15:40 | disposition home or self-care (01) ==
LOC: ANHOBOP 17:13 → ANHOBPP 17:13
PROVIDERS: Admitting Provider Obstetrics & Gynecology; Visit Provider Obstetrics & Gynecology
DX: O16.5 Unspecified maternal hypertension, complicating the puerperium (principal); I34.0 Nonrheumatic mitral (valve) insufficiency; I37.1 Nonrheumatic pulmonary valve insufficiency; F41.8 Other specified anxiety disorders; Z79.1 Long term (current) use of non-steroidal anti-inflammatories (NSAID); Z82.49 Family history of ischemic heart disease and other diseases of the circulatory system; Z80.3 Family history of malignant neoplasm of breast
CPT/HCPCS: 36415; 80053; 84550; 85025; 85027; 93306; 96365; A9270; G0378; G0379; J3475; J7120